=== PATIENT | male | born 1960 | race Caucasian/White ===

== ENCOUNTER 2023-07-16 09:47 | Inpatient (IN) | payer OTHER, SELFPAY ==
[2023-07-16] VITALS (45 sets, daily range): BP systolic 59–166; BP diastolic 27–92; PULSE 46–81; RESP 12–166; TEMP 31.1–37.8; O2SAT 98–100; BMI 20.5
--- NOTE | ~2023-07-16 | XR_ITS ---
EXAMINATION: XR CHEST CLINICAL INFORMATION: ET tube placement COMPARISON: None. TECHNIQUE: Frontal view of the chest was obtained. FINDINGS: Tip of endotracheal tube is 5 cm above the micheline. The lungs are hyperinflated but clear of acute pneumonic process. Heart size and pulmonary vascularity is normal. No gross bony abnormality seen. XR/XR chest 1V IMPRESSION: Tip of endotracheal tube 5 cm above the micheline. Emphysematous lungs are clear.
--- NOTE | ~2023-07-16 | XR_ITS ---
EXAMINATION: XR CHEST CLINICAL INFORMATION: Line placement. COMPARISON: Chest 07/16/2023 TECHNIQUE: Frontal view of the chest was obtained. FINDINGS: Part of left lower lobe and CP angle is not in the [id number]. The lungs are expanded and clear of acute process. Heart size and pulmonary vascularity is normal. There is a right jugular central catheter with its tip in mid SVC. Tip of endotracheal tube is 8.4 cm above the micheline. No gross bony abnormality seen. XR/XR chest 1V IMPRESSION: 1. No acute cardiopulmonary process seen. 2. Tip of endotracheal tube is 8.4 cm above the micheline. 3. Right jugular central catheter tip is in mid SVC.
--- NOTE | ~2023-07-16 | CT_ITS ---
EXAMINATION: CT brain and CT cervical spine without contrast. CLINICAL INDICATION: Unresponsive. TECHNIQUE: 5 mm thin axial and reformatted 2 mm thin sagittal and coronal images of brain were obtained. Axial 3 mm thin and reformatted 2 mm thin sagittal and coronal images of cervical spine were obtained. DLP 995. This CT examination was performed using dose optimization technique as appropriate, variously including the following: Automated exposure control Adjustment of MA and/or KV according to patient size(this includes techniques or standardized protocols for targeted exams where dose is matched to indication/reason for exam; extremities or head. Use of iterative reconstruction techniques. FINDINGS: BRAIN: There is no acute intra-axial, extra-axial bleed, masses or midline shift. There is no acute infarction in evolution. There is no edema. The pink to white matter differentiation is maintained normal. The lateral ventricles are symmetrical in size and configuration but mildly enlarged. Bone windows reveal no calvarial abnormality. There is no scalp soft tissue abnormality. Bilateral paranasal sinuses are clear. CERVICAL SPINE: On sagittal reconstructed images there is maintained cervical lordosis. The vertebral heights, alignment and disc heights are maintained normal. The craniovertebral junction and C1-C2 alignment is normal. There is moderate right C4-C5 and mild left C5-C6 facet joint arthropathy and hypertrophy. No visible acute fracture, dislocation or subluxation seen. The TM joint are symmetrical and unremarkable. There is an endotracheal tube extending into the distal trachea the prevertebral and paravertebral soft tissues are normal. There is emphysema with bibasilar apical pleural thickening and apical parenchymal scarring. CT/CT cervical spine wo IV con IMPRESSION: No acute intracranial process seen. There is no visible acute fracture, dislocation subluxation in cervical spine. There is facet joint arthropathy as described above.
--- NOTE | ~2023-07-16 | XR_ITS ---
EXAMINATION: XR CHEST CLINICAL INFORMATION: Enteric tube placement. COMPARISON: Chest radiograph earlier today 07/16/2023 at 3:19 PM. TECHNIQUE: Frontal view of the chest was obtained. FINDINGS: Endotracheal tube terminates at 4.8 cm above the micheline. Right IJ CVC catheter tip projects at the level of the superior cavoatrial junction. An enteric tube courses into the abdomen with the tip outside of the field of view, the side port projects over the gastroesophageal junction. Normal heart size. No focal consolidation. No pneumothorax. Trace blunting of the right lateral costophrenic angle is most likely related with mild pleural thickening in view of the patient's rotation versus left-sided trace amount of pleural fluid. No acute osseous findings. XR/XR chest 1V IMPRESSION: 1. Endotracheal tube terminates at 4.8 cm above the micheline. 2. Enteric tube side port projects over the gastroesophageal junction. Recommend mild advancement. 3. No acute cardiopulmonary findings.
--- NOTE | ~2023-07-16 | CT_ITS ---
EXAMINATION: CT CHEST, ABDOMEN AND PELVIS WITH CONTRAST CLINICAL INFORMATION: Altered mental status. COMPARISON: None available. TECHNIQUE: Multidetector volumetric imaging was performed of the chest, abdomen and pelvis following administration of 85 mL Omnipaque 350 intravenous contrast. Oral contrast was administered. Sagittal and coronal reformatted images were obtained on the technologist's workstation. This CT examination was performed using dose optimization techniques as appropriate, variously including the following: *Automated exposure control *Adjustment of mA and/or kV according to patient size (this includes techniques or standardized protocols for targeted exams where dose is matched to indication/reason for exam; i.e. extremities or head) *Use of iterative reconstruction technique DLP: 606 mGy-cm FINDINGS: Motion artifact technically degrades image quality. CHEST: CHEST WALL: No acute abnormality. MEDIASTINUM: Endotracheal tube in satisfactory position terminating 4 cm above the micheline. No bulky axillary, hilar or mediastinal lymphadenopathy. Great vessels are of normal caliber. Heart size is normal. No pericardial effusion. CORONARY ARTERY CALCIFICATION: No significant coronary artery calcification appreciated on this exam. PLEURA: There is no significant pleural effusion. LUNGS: Mild centrilobular emphysema. No focal consolidation. 3 mm nodule right lower lobe on image 28 of series 6. Central airways are patent. There is bibasilar dependent atelectasis. ABDOMEN AND PELVIS: ABDOMINAL AND PELVIC WALL: No acute abnormality. LIVER AND BILIARY TREE: No focal hepatic lesion. No biliary ductal dilatation. GALLBLADDER: Unremarkable. PANCREAS: Unremarkable. SPLEEN: Unremarkable. ADRENAL GLANDS: Unremarkable. KIDNEYS AND URETERS: Unremarkable. GASTROINTESTINAL TRACT: Severe fecal impaction in the colon. There is fecalization of small bowel most likely related to intestinal dysmotility. There is gastric distention. Appendix is within normal limits. VASCULAR: Normal caliber abdominal aorta. LYMPH NODES: No bulky lymphadenopathy. FREE FLUID: No free fluid. BLADDER: Unremarkable. PELVIC VISCERA: Unremarkable. OSSEOUS STRUCTURES: No destructive bone lesions. CT/CT abdomen pelvis w IV con IMPRESSION: Severe constipation. Dependent atelectasis. 3 mm right lower lobe pulmonary nodule.
[2023-07-16 09:57] LABS: Glucose, Whole Blood 169 mg/dL (60-115)
--- NOTE | 2023-07-16 10:07 | ECG_ITS ---
Test Reason : aspiration Blood Pressure : / mmHG Vent. Rate : 078 BPM Atrial Rate : 078 BPM P-R Int : 174 ms QRS Dur : 086 ms QT Int : 422 ms P-R-T Axes : 071 061 070 degrees QTc Int : 481 ms Normal sinus rhythm Possible Left atrial enlargement mildly Prolonged QT Abnormal ECG No previous ECGs available Referred By: Jose Randolph Electronically Signed By:KAYLEY SARKAR
[2023-07-16] MEDS: Etomidate 20 MG/10 ML VIAL IVPUSH (10:11)
--- NOTE | 2023-07-16 10:19 | ED_ITS ---
HPI - General Adult General Chief complaint: General Medical Stated complaint: ?SZ/?POSTICTAL,UNR @BREAKFAST FROM INPT PSYCH Time Seen by Provider: 07/16/23 10:19 Source: EMS Mode of arrival: EMS Limitations: other History of Present Illness HPI narrative: 63 year old male history of anxiety, depression, GERD, hyperlipidemia, vitamin B12 deficiency, hearing loss, acute metabolic encephalopathy, cigarette smoker, achalasia coming from an inpatient unit at [facility] presents with altered mental status, status post an episode of choking and unresponsiveness. Arrives to the department altered unable to protect his own airway, coughing, food contents hanging out of his mouth, according to EMS a suction and a large amount of food from patient's mouth. Patient unable to provide history Related Data Home Medications Medication Instructions Recorded Confirmed acetaminophen 325 mg tablet 650 mg PO Q4H PRN Pain 07/16/23 07/16/23 aspirin 81 mg tablet,delayed 81 mg PO DAILY 07/16/23 07/16/23 release atorvastatin 10 mg tablet 10 mg PO DAILY 07/16/23 07/16/23 cholecalciferol (vitamin D3) 50 50 mcg PO DAILY 07/16/23 07/16/23 mcg (2,000 unit) tablet clozapine 100 mg disintegrating 200 mg PO DAILY 07/16/23 07/16/23 tablet cyanocobalamin (vitamin B-12) 1,000 mcg PO DAILY 07/16/23 07/16/23 1,000 mcg tablet divalproex 500 mg tablet,delayed 1,000 mg PO BEDTIME 07/16/23 07/16/23 release (Depakote) docusate sodium 100 mg capsule 100 mg PO BID 07/16/23 07/16/23 famotidine 20 mg tablet 20 mg PO DAILY 07/16/23 07/16/23 fludrocortisone 0.1 mg tablet 0.1 mg PO DAILY 07/16/23 07/16/23 glycopyrrolate 1 mg tablet 1 mg PO BEDTIME 07/16/23 07/16/23 propranolol 60 mg capsule,24 60 mg PO DAILY 07/16/23 07/16/23 hr,extended release sennosides 8.6 mg tablet 17.2 mg PO BEDTIME 07/16/23 07/16/23 timolol 0.5 % eye drops 1 drp ophthalmic (eye) BID 07/16/23 07/16/23 Allergies Allergy/AdvReac Type Severity Reaction Status Date / Time No Known Allergies Allergy Verified 07/16/23 10:06 Review of Systems 2 Review of Systems: Yes Unobtainable due to mental status PMF Past Medical History Attestation statement: The following information was validated with the patient. Source: old records reviewed and nursing notes reviewed Social History Social History Unable to assess alcohol history related to: Unable to respond Smoked in Last 30 Days: Yes Advance Directives: No Advance Directives Information Provided: No Physical Exam ED Vital Signs: Vital Signs - 24 hr 07/16/23 10:07 07/16/23 10:16 07/16/23 10:26 Temperature 98 F Pulse Rate 78 77 79 Respiratory Rate 19 166 H Blood Pressure 151/75 H 151/75 H 140/75 H Pulse Oximetry 99 99 99 Oxygen Delivery Method Nasal Cannula Nasal Cannula Oxygen Flow Rate 2 Fraction of Inspired Oxygen 50 07/16/23 10:46 07/16/23 11:00 07/16/23 11:07 Temperature Pulse Rate 77 77 80 Respiratory Rate 16 16 Blood Pressure 145/77 H 148/92 H 153/78 H Pulse Oximetry 99 100 100 Oxygen Delivery Method Mechanical Ventilation Oxygen Flow Rate Fraction of Inspired Oxygen 60 07/16/23 11:17 07/16/23 11:40 07/16/23 11:43 Temperature Pulse Rate 78 69 Respiratory Rate 18 14 Blood Pressure 148/86 H 133/87 Pulse Oximetry 100 100 Oxygen Delivery Method Mechanical Ventilation Oxygen Flow Rate Fraction of Inspired Oxygen 50 50 BMI result Body Mass Index 20.5 Appearance: Moderate respiratory distress on arrival, unable to control his own secretions, not responding to verbal or painful stimuli. Cachectic appearing Head: Normocephalic, atraumatic, no step-offs or deformities Eyes: Pupils equal, round and reactive to light.? ENT: A large amount of food noted in patient's oropharynx and airway. Neck: Normal inspection.? Neck supple.? CVS: Normal heart rate and rhythm.? Pulses normal.? Respiratory: No respiratory distress.? Breath sounds very diminished bilaterally worse on the left..? Abdomen: Soft and nontender.? Skin: Skin warm and dry.? Normal skin color.? Normal skin turgor.? Extremities: No lower extremity edema.? No calf ttp. Global weakness Neuro: Moderate respiratory distress on arrival, unable to control his own secretions, not responding to verbal or painful stimuli. Course Reevaluation(s) Reevaluation #1: CBC with a normocytic anemia. Low platelet count of 154, unknown patient's baseline. Patient's chemistry with elevated BUN likely secondary to poor p.o. intake/dehydration, lactic acid 2.2, covering patient for suspected aspiration pneumonia. UA without infection. Pending CT chest, abdomen, pelvis, head, cervical spine. Time: 11:50 Reevaluation #2: Will reach out to the brake drum molder Dr. Gipson for admission. Time: 11:51 Reevaluation #3: [employer] accepts admission at this time. Time: 11:52 Medications Administered Generic Name Dose Route Start Last Admin Trade Name Freq PRN Reason Stop Dose Admin Propofol 1,000 mg in 100 mls @ 0 mls/hr 07/16/23 10:30 07/16/23 13:07 Diprivan IVCONT 40 mcg/kg/min .Q0M KYLE 15.12 mls/hr Titration Protocol Per Protocol Discontinued Medications Generic Name Dose Route Start Last Admin Trade Name Freq PRN Reason Stop Dose Admin Etomidate 20 mg 07/16/23 10:27 07/16/23 10:11 Etomidate 20 Mg/10 Ml Vial IVPUSH 07/16/23 10:28 20 mg ONCE ONE Administration Sodium Chloride 1,000 mls @ 999 mls/hr 07/16/23 10:06 07/16/23 12:44 Ns IV 07/16/23 11:06 Infused .Q1H1M STA Infusion Cefepime HCl 2 gm/ Sodium 50 mls @ 100 mls/hr 07/16/23 10:30 07/16/23 12:44 Chloride IV 07/16/23 10:59 Infused ONCE ONE Infusion Azithromycin 500 mg/ Sodium 250 mls @ 125 mls/hr 07/16/23 10:30 07/16/23 11:42 Chloride IV 07/16/23 12:29 125 mls/hr ONCE ONE Administration Sodium Chloride 1,000 mls @ 999 mls/hr 07/16/23 10:30 07/16/23 12:44 Ns IV 07/16/23 11:30 Infused .Q1H1M KYLE Infusion Fentanyl 1,000 mcg in 100 mls @ 0 mls/hr 07/16/23 11:45 07/16/23 13:15 Sublimaze/Ns IVCONT Infused .Q0M KYLE Titration Protocol Per Protocol Iohexol 100 ml 07/16/23 11:31 07/16/23 11:31 Iohexol 350 Mg/Ml 100 Ml Infus..Btl IV 07/16/23 11:32 85 ml ONCE ONE Administration Rocuronium [place] 40 mg 07/16/23 10:27 07/16/23 10:11 Rocuronium [place] 100 Mg/10 Ml Vial IV 07/16/23 10:28 40 mg ONCE ONE Administration Procedures Intubation Time out performed: Yes sedative: Etomidate Mg Given: 20 paralytic: Rocuronium Mg Given: 40 Laryngoscope: fiber optic video scope Assist Device Used: fiber optic device ET Tube Size: 8 ET Tube Uncuffed: No Tube Secured Depth (cm): 22 Tube Secured Location: lips Tube Placement Confirmation: visualized tube passing through cords, equal breath sounds bilaterally, no breath sounds over epigastrium and confirmation by capnometry Patient Tolerated Procedure: well Intubation Complications: none Medical Decision Making Medical Decision Making MDM Narrative: 63-year-old male presents unresponsive status post episode of choking at [facility]. Unable to answer questions. Appears to be in moderate distress upon arrival. Physical exam significant for Moderate respiratory distress on arrival, unable to control his own secretions, not responding to verbal or painful stimuli. Patient appears cachectic, not responding to painful or verbal stimuli. Unable to protect his own airway. Immediately on patient's arrival he was put on the containers sales representative, and his airway was secured, Narcan was also given patient did not respond to Narcan. Rapid sequence intubation was done using 20 mg of etomidate 40 of rocuronium, a 8.0 ET tube was placed under direct visualization with GlideScope 22 at the lip, there was a large amount of food content noted in patient's mouth, and airway, + colormetric change, + bs b/l s/p intubation. Suppervising physian Dr. Randolph present and ok with plan Imminent problem acute respiratory distress likely secondary to aspiration of food contents, other differentials include seizure. Will rule out infection, electrolyte abnormalities, abnormalities in head, neck, chest, abdomen and pelvis. Plan- labs, imaging, Differential Diagnosis Differential Diagnoses: The differential diagnosis associated with the presentation includes Imminent problem acute respiratory distress likely secondary to aspiration of food contents, other differentials include seizure. Will rule out infection, electrolyte abnormalities, abnormalities in head, neck, chest, abdomen and pelvis. Admission/Observation Consideration of admission/observation: Escalation of care including admission/observation considered ICU level of care will be needed Consult Healthcare Provider Management of the patient was discussed with: Luggage [employer] Lab Data MDM Lab Attestation statement: I reviewed the patient's lab results. 07/16/23 10:15 07/16/23 10:15 Labs: Lab Results 07/16/23 07/16/23 07/16/23 Range/Units 09:54 10:15 11:27 WBC 6.5 (4.8-10.8) X10*3/uL RBC 3.57 L (4.60-5.80) X10*6/uL Hgb 11.0 L (14.0-18.0) g/dl Hct 33.0 L (42.0-52.0) % MCV 92.4 (80.0-98.0) fL MCH 30.8 (27.0-33.0) pg MCHC 33.3 (31.0-36.0) g/dl RDW 13.0 (11.0-16.0) % Plt Count 154 L (160-400) X10*3/uL MPV 9.9 (9.4-12.4) fL Immature Gran % (Auto) 0.5 H (0.0-0.4) % Neut % (Auto) 75.2 H (45-73) % Lymph % (Auto) 16.5 L (20-40) % [place] % (Auto) 5.8 (2-11) % Eos % (Auto) 1.5 (0-4) % Baso % (Auto) 0.5 (0-2) % Lymph # (Auto) 1.1 L (1.2-4.9) X10*3/uL [place] # (Auto) 0.4 (0.1-1.2) X10*3/uL Eos # (Auto) 0.1 (0.0-0.4) X10*3/uL Baso # (Auto) 0.0 (0.0-0.2) X10*3/uL Abs Immat Gran (auto) 0.03 (0.00-0.03) X10*3/uL Absolute Neuts (auto) 4.9 (2.0-8.3) x10*3/uL Absolute Nucleated RBC 0.000 (0.0-0.012) X10*3/uL Nucleated RBC % (auto) 0.0 (0.0-0.2) /100WBC PT 13.0 (11.1-13.3) SEC INR 1.1 (0.9-1.1) APTT 30.8 (26.0-36.4) SEC Sodium 138 (135-145) mmol/L Potassium 4.0 (3.3-5.1) mmol/L Chloride 108 (96-108) mmol/L Carbon Dioxide 24 (22-29) mmol/L Anion Gap 10 L (12-20) BUN 20 H (9-16) mg/dL Creatinine 0.74 (0.5-1.4) mg/dL Estim Creat Clear Calc 89.8 Estimated GFR > 60 POC Glucose 169 H (60-115) mg/dL Random Glucose 170 H (60-115) mg/dL Lactic Acid 2.2 H* (0.5-2.0) mmol/L Calcium 8.5 (8.4-10.2) mg/dL Total Bilirubin 0.5 (0.0-1.0) mg/dL Direct Bilirubin 0.2 (0.0-0.5) mg/dL AST 23 (5-37) U/L ALT 12 (0-40) U/L Alkaline Phosphatase 57 (39-117) U/L Total Creatine Kinase 502 H (38-174) U/L Troponin I High Sens 3.3 (<3.5-35.0) ng/L B-Natriuretic Peptide 30 (<100) pg/mL Total Protein 6.0 L (6.5-8.0) g/dL Albumin 3.7 (3.5-5.0) g/dL Urine Color Yellow Urine Appearance Clear Urine pH 5.5 (5.0-9.0) Ur Specific [place] >= 1.030 H (1.005-1.025) Urine Protein Negative (Neg-Trace) mg/dL Urine Glucose (UA) Negative (Negative) mg/dL Urine Ketones Trace (Negative) mg/dL Urine Blood Negative (Negative) Urine Nitrite Negative (Negative) Ur Leukocyte Esterase Negative (Negative) Urine RBC 0-2 (0-2) /HPF Urine WBC 0-5 (0-5) /HPF Ur Squamous Epith Cells 0-2 (0-2) /HPF Urine Bacteria None Seen (None Seen) Hyaline Casts 0-2 (0-2) /LPF Ethyl Alcohol < 10 mg/dL Independent Interpretation I performed an independent interpretation of an: CT Scan (CT/CT chest w IV con IMPRESSION: Severe constipation. Dependent atelectasis. 3 mm right lower lobe pulmonary nodule.) Radiology Impression Discussion of test interpretation with radiology: I have reviewed the radiologist's reading. External Record Review External record reviewed: Other Social Determinants Patient?s care significantly limited by Social Determinants of Health including: Other Social Determinant of Health Critical Care Time Critical Care Time Critical Care Time: Yes Total Critical Care Time: 60 Attestation: I attest to this time spent taking care of the patient, obtaining history, physical, reviewing labs, imaging, speaking to my attending, speaking to specialist. Discharge Plan Discharge Clinical Impression: Aspiration pneumonia, Altered mental status Patient Disposition: Admitted As Inpatient Interventions: Admission Worksheet (ED) Last Done: 07/16/23 13:20 Discharge Date/Time: 07/16/23 13:27
[2023-07-16 10:21] LABS: MANUAL DIFF FLAG NO
[2023-07-16 10:26] LABS: Basophils Percent Auto 0.5 % (0-2); Eosinophils Absolute Auto 0.1 X10*3/uL (0.0-0.4); Eosinophils Percent Auto 1.5 % (0-4); Imm Gran Abs Auto 0.03 X10*3/uL (0.00-0.03); Imm Gran Pct Auto 0.5 % (0.0-0.4); Lymphocytes Absolute Auto 1.1 X10*3/uL (1.2-4.9); Lymphocytes Percent Auto 16.5 % (20-40); Mean Corpuscular HGB Conc 33.3 g/dl (31.0-36.0); Mean Corpuscular Hemoglobin 30.8 pg (27.0-33.0); Mean Corpuscular Volume 92.4 fL (80.0-98.0); Mean Platelet Volume 9.9 fL (9.4-12.4); Monocytes Absolute Auto 0.4 X10*3/uL (0.1-1.2); Monocytes Percent Auto 5.8 % (2-11); Neutrophils Absolute Auto 4.9 x10*3/uL (2.0-8.3); Neutrophils Percent Auto 75.2 % (45-73); Platelet Count 154 X10*3/uL (160-400); Red Blood Count 3.57 X10*6/uL (4.60-5.80); White Blood Count 6.5 X10*3/uL (4.8-10.8)
--- NOTE | 2023-07-16 10:28 | PC.NURSE ---
rocuronium and etomidate given, intubated 23 at the lip, 8.0, bits of food suctioned during intubation and during ogt placement, [address], 1 via ems, sr on monitor, pt brought to ct scan and c xray complete
[2023-07-16 10:36] LABS: INTERNATIONAL NORM RATIO 1.1 (0.9-1.1)
[2023-07-16 10:41] LABS: Lactic Acid 2.2 mmol/L (0.5-2.0)
[2023-07-16 10:42] LABS: Alanine Aminotransferase 12 U/L (0-40); Albumin Level 3.7 g/dL (3.5-5.0); Alkaline Phosphatase 57 U/L (39-117); Anion Gap 10 (12-20); Aspartate Amino Transferase 23 U/L (5-37); Bilirubin Direct 0.2 mg/dL (0.0-0.5); Bilirubin Total 0.5 mg/dL (0.0-1.0); Blood Urea Nitrogen 20 mg/dL (9-16); Calcium 8.5 mg/dL (8.4-10.2); Carbon Dioxide 24 mmol/L (22-29); Chloride 108 mmol/L (96-108); Creatinine Clr Calc Pharmacy 89.8; Estimated Glomerular Filt Rate > 60; Ethanol < 10 mg/dL; Glucose Random 170 mg/dL (60-115); Sodium 138 mmol/L (135-145)
[2023-07-16] MEDS: 0.9 % Sodium Chloride 1,000 ML 999 ML IV ×2 (10:42→11:34)
[2023-07-16] MEDS: propofoL 1,000 MG/100 ML VIAL 11.34 MG IVCONT (10:46)
[2023-07-16] MEDS: cefEPime HCl 2 GM in 0.9 % Sodium Chloride 50 ML IV (11:04)
[2023-07-16] MEDS: iohexoL 350 MG/ML 100 ML INFUS..BTL IV (11:31)
[2023-07-16 11:34] LABS: Appearance Urine Clear; Color Urine Yellow; Glucose Urine UA Negative (Negative); Leukocyte Esterase Urine Negative (Negative); Nitrite Urine Negative (Negative); PH 5.5 (5.0-9.0); Specific Gravity - Urine >= 1.030 (1.005-1.025); Urine Blood Negative (Negative); Urine Ketones Trace mg/dL (Negative); Urine Protein Negative (Neg-Trace)
--- NOTE | 2023-07-16 11:35 | PC.NURSE ---
Patient restless, agitated attempting to pull and grab at ETT but not biting on tube. Patient placed in bilateral wrist restraints, propofol at max dose. Provider made aware.
[2023-07-16 11:36] LABS: Bacteria Urine None Seen (None Seen); Hyaline Casts Urine 0-2 /LPF (0-2); RBC Urine 0-2 /HPF (0-2); Squamous Epithelial Cell Urine 0-2 /HPF (0-2); WBC Urine 0-5 /HPF (0-5)
[2023-07-16] MEDS: Azithromycin 500 MG in 0.9 % Sodium Chloride 250 ML 125 MG IV (11:42)
[2023-07-16 11:50] LABS: Partial Thromboplastin Time 30.8 SEC (26.0-36.4)
--- NOTE | 2023-07-16 11:51 | PHA.MEDREC ---
Pharmacy Consult ? Medication Reconciliation Pharmacy has completed the medication reconciliation. Patient sent with list from [facility], called to confirm when last clozaril dose was and they noted that even though he is listed as 400mg HS, he has only been there for 2 days because he was not adherent, due to this they were titrating him back up and his current regimen is 200mg daily.
[2023-07-16] MEDS: fentaNYL citrate/NS 1,000 MCG/100 ML PLAST..BAG 2.5 MCG IVCONT (11:52)
[2023-07-16 12:03] LABS: Troponin-I High Sensitivity 3.3 ng/L (<3.5-35.0)
[2023-07-16 12:12] LABS: B Type Natriuretic Peptide 30 pg/mL (<100)
[2023-07-16 12:19] LABS: Reflex Lactate? Lactic Acid Added
[2023-07-16 12:42] LABS: VBG Base Excess -3.3 mmol/L; VBG HCO3 20 mmol/L (22-26); VBG pCO2 32 mmHg; VBG pH 7.41 (7.32-7.43); VBG pO2 163 mmHg
[2023-07-16 12:42] LABS: Venous Blood Gas Refer to POC result
[2023-07-16 12:55] LABS: ~Lactic Acid-LAB USE ONLY 2.2 mmol/L (0.5-2.0)
[2023-07-16] MEDS: Ampicillin Sodium/Sulbactam Na 3 GM in 0.9 % Sodium Chloride 100 ML IV ×3 (13:37→23:41)
[2023-07-16] MEDS: Chlorhexidine Gluc Oral Rinse 15 ML MOUTHWASH BUCCAL (13:37)
[2023-07-16 14:36] LABS: Reflex Lactate? 2 Y
[2023-07-16] MEDS: Heparin Sodium,Porcine 5,000 UNIT/ML VIAL 5000 UNIT SUBCUT ×2 (14:42→20:59)
[2023-07-16] MEDS: Norepinephrine Bitartrate/D5W 8 MG/250 ML PLAST..BAG 5.91 MG IV (14:55)
[2023-07-16] MEDS: Phenylephrine HCL 1,000 MCG/10 ML SYRINGE 400 MCG IVPUSH (15:05)
--- NOTE | 2023-07-16 15:28 | P.PCNCC_ITS ---
Procedures Date of Service Date of Service: 07/16/23 Central Line Placement Right IJ: Central Line Comments: Patient with sudden acute drop in blood pressure refractory to initial high-dose Levophed support requiring push dose pressors. Right internal jugular triple- lumen central venous line emergently placed for pressor support under ultrasound guidance with no immediate complications. Chest x-ray for line position is pending.
--- NOTE | 2023-07-16 16:09 | PC.NURSE ---
At 1435 pt noted to have a BP 76/[address] Gipson notified - Levophed drip ordered and started per EMAR. MAP continued to maintain <65 w/ levo titrations, HR 40's, sinus - MD called to bedside - Phenyleprine 200mcg x2 given IVP by MD, pacer pads applied - RT called to bedside. 1510 emergent TLC placed w/o issue - placement confirmed by XRAY. MAP improved and maintaining >65 - levo gtt titrated per EMAR - HR high 50's, synchronous w/ vent setting.
--- NOTE | 2023-07-16 16:24 | PM.CCHP ---
History of Present Illness Date of Service: 07/16/23 Chief Complaint: Alteration of mental status, acute respiratory failure aspiration of food 63-year-old gentleman with underlying history of anxiety, depression, GERD, achalasia, also likely schizophrenia admitted on 07/16/2023 from [facility] after an episode of unresponsiveness associated with choking on foot during the 1st in emergency room patient unable to protect airway with foot particles in the Mohs, intubated for 40 aspiration and transferred to intensive care unit. Review of Systems Review of Systems: Yes unobtainable due to endotracheal tube, Unobtainable due to mental condition and Unobtainable due to mental status [facility] Social History Social History Household Members: Unknown / Unable to assess Housing: Unknown / Unable to assess Unable to assess alcohol history related to: Unknown Patient Tobacco Use Status: Tobacco use Unknown Smoked in Last 30 Days: Yes Use of substances other than those prescribed or required for medical reasons: Unknown Advance Directives: No Advance Directives Information Provided: No Meds Allergies Allergy/AdvReac Type Severity Reaction Status Date / Time No Known Allergies Allergy Verified 07/16/23 10:06 Active Medications: Current Medications Famotidine (Famotidine/Pf 20 Mg/2 Ml Vial) 20 mg IVPUSH DAILY KYLE Heparin Sodium (Porcine) (Heparin Sodium,Porcine 5,000 Unit/Ml Vial) 5,000 unit SUBCUT Q8H KYLE Last Admin: 07/16/23 14:42 Dose: 5,000 unit Propofol (Diprivan) 1,000 mg in 100 mls @ 0 mls/hr IVCONT .Q0M KYLE; Protocol Last Titration: 07/16/23 15:18 Dose: 40 mcg/kg/min, 15.12 mls/hr Ampicillin Sodium/Sulbactam (Sodium 3 gm/ Sodium Chloride) 100 mls @ 200 mls/hr IV Q6H KYLE Last Infusion: 07/16/23 14:10 Dose: Infused Valproic Acid 1,000 mg/ (Dextrose) 60 mls @ 60 mls/hr IV Q24H KYLE Norepinephrine Bitartrate (Levophed) 8 mg in 250 mls @ 0 mls/hr IV .Q0M KYLE; Protocol Last Titration: 07/16/23 16:07 Dose: 0.28 mcg/kg/min, 33.08 mls/hr Midazolam HCl (Midazolam Hcl/Pf 2 Mg/2 Ml Vial) 2 mg IVPUSH Q2H PRN PRN Reason: ventilator synchrony Home Medications Medication Instructions Recorded Confirmed Last Taken Type acetaminophen 325 mg tablet 650 mg PO Q4H PRN Pain 07/16/23 07/16/23 Unknown History aspirin 81 mg tablet,delayed 81 mg PO DAILY 07/16/23 07/16/23 Unknown History release atorvastatin 10 mg tablet 10 mg PO DAILY 07/16/23 07/16/23 Unknown History cholecalciferol (vitamin D3) 50 50 mcg PO DAILY 07/16/23 07/16/23 Unknown History mcg (2,000 unit) tablet clozapine 100 mg disintegrating 200 mg PO DAILY 07/16/23 07/16/23 07/16/23 History tablet cyanocobalamin (vitamin B-12) 1,000 mcg PO DAILY 07/16/23 07/16/23 Unknown History 1,000 mcg tablet divalproex 500 mg tablet,delayed 1,000 mg PO BEDTIME 07/16/23 07/16/23 Unknown History release (Depakote) docusate sodium 100 mg capsule 100 mg PO BID 07/16/23 07/16/23 Unknown History famotidine 20 mg tablet 20 mg PO DAILY 07/16/23 07/16/23 Unknown History fludrocortisone 0.1 mg tablet 0.1 mg PO DAILY 07/16/23 07/16/23 Unknown History glycopyrrolate 1 mg tablet 1 mg PO BEDTIME 07/16/23 07/16/23 Unknown History propranolol 60 mg capsule,24 60 mg PO DAILY 07/16/23 07/16/23 Unknown History hr,extended release sennosides 8.6 mg tablet 17.2 mg PO BEDTIME 07/16/23 07/16/23 Unknown History timolol 0.5 % eye drops 1 drp ophthalmic (eye) BID 07/16/23 07/16/23 Unknown History Physical Exam Vital Signs: Vital Signs: Last Vital Signs Temp 95.7 F L 07/16/23 16:00 Pulse 58 07/16/23 16:07 Resp 18 07/16/23 16:00 BP 138/69 07/16/23 16:07 Pulse Ox 100 07/16/23 16:00 O2 Del Method Mechanical Ventil ation 07/16/23 16:00 O2 Flow Rate 2 07/16/23 10:07 FiO2 30 07/16/23 16:07 Oxygen Flow Rate 2 07/16/23 10:16 BMI result Body Mass Index 20.5 Const: General: no acute distress and other (Sedated on the vent) Eyes: Sclerae: sclerae normal EOM: EOMs intact bilaterally Neck: Neck: Yes no lymphadenopathy, Yes trachea midline and Yes supple Resp: Auscultation: clear to auscultation bilaterally Cardio: Rate: regular rate Rhythm: regular rhythm Heart sounds: no gallops, no murmurs and no rubs GI: Palpation (GI): Soft to palpation and Other GI palpation findings present ( Nontender) Auscultation: normal bowel sounds Extrem: General: Yes no pedal edema, No clubbing and No cyanosis Results Labs 07/16/23 10:15 07/16/23 10:15 Labs: Laboratory Results - last 24 hr 07/16/23 07/16/23 07/16/23 09:54 10:15 11:27 MCV 92.4 MCH 30.8 MCHC 33.3 RDW 13.0 Plt Count 154 L MPV 9.9 Immature Gran % (Auto) 0.5 H Neut % (Auto) 75.2 H Lymph % (Auto) 16.5 L [place] % (Auto) 5.8 Eos % (Auto) 1.5 Baso % (Auto) 0.5 Lymph # (Auto) 1.1 L [place] # (Auto) 0.4 Eos # (Auto) 0.1 Baso # (Auto) 0.0 Abs Immat Gran (auto) 0.03 Absolute Neuts (auto) 4.9 Absolute Nucleated RBC 0.000 Nucleated RBC % (auto) 0.0 PT 13.0 INR 1.1 APTT 30.8 VBG pH VBG pCO2 VBG pO2 VBG HCO3 VBG O2 Saturation VBG Base Excess Anion Gap 10 L Estim Creat Clear Calc 89.8 Estimated GFR > 60 POC Glucose 169 H Random Glucose 170 H Lactic Acid 2.2 H* Lactic Acid F/U @ 2Hr Lactic Acid F/U @ 4Hr Calcium 8.5 Total Bilirubin 0.5 Direct Bilirubin 0.2 AST 23 ALT 12 Alkaline Phosphatase 57 Total Creatine Kinase 502 H B-Natriuretic Peptide 30 Total Protein 6.0 L Albumin 3.7 Urine Color Yellow Urine Appearance Clear Urine pH 5.5 Ur Specific [place] >= 1.030 H Urine Protein Negative Urine Glucose (UA) Negative Urine Ketones Trace Urine Blood Negative Urine Nitrite Negative Ur Leukocyte Esterase Negative Urine RBC 0-2 Urine WBC 0-5 Ur Squamous Epith Cells 0-2 Urine Bacteria None Seen Hyaline Casts 0-2 Ethyl Alcohol < 10 07/16/23 07/16/23 07/16/23 12:32 12:37 14:46 MCV MCH MCHC RDW Plt Count MPV Immature Gran % (Auto) Neut % (Auto) Lymph % (Auto) [place] % (Auto) Eos % (Auto) Baso % (Auto) Lymph # (Auto) [place] # (Auto) Eos # (Auto) Baso # (Auto) Abs Immat Gran (auto) Absolute Neuts (auto) Absolute Nucleated RBC Nucleated RBC % (auto) PT INR APTT VBG pH 7.41 VBG pCO2 32 VBG pO2 163 VBG HCO3 20 L VBG O2 Saturation 100.0 VBG Base Excess -3.3 Anion Gap Estim Creat Clear Calc Estimated GFR POC Glucose Random Glucose Lactic Acid Lactic Acid F/U @ 2Hr 2.2 H* Lactic Acid F/U @ 4Hr 2.0 Calcium Total Bilirubin Direct Bilirubin AST ALT Alkaline Phosphatase Total Creatine Kinase B-Natriuretic Peptide Total Protein Albumin Urine Color Urine Appearance Urine pH Ur Specific [place] Urine Protein Urine Glucose (UA) Urine Ketones Urine Blood Urine Nitrite Ur Leukocyte Esterase Urine RBC Urine WBC Ur Squamous Epith Cells Urine Bacteria Hyaline Casts Ethyl Alcohol Imaging Radiologist's Impressions: Impressions Chest X-Ray 07/16/23 10:22 IMPRESSION: Tip of endotracheal tube 5 cm above the micheline. Emphysematous lungs are clear. Cervical Spine CT 07/16/23 11:28 IMPRESSION: No acute intracranial process seen. There is no visible acute fracture, dislocation subluxation in cervical spine. There is facet joint arthropathy as described above. Head CT 07/16/23 11:28 IMPRESSION: No acute intracranial process seen. There is no visible acute fracture, dislocation subluxation in cervical spine. There is facet joint arthropathy as described above. Abdomen/Pelvis CT 07/16/23 11:29 IMPRESSION: Severe constipation. Dependent atelectasis. 3 mm right lower lobe pulmonary nodule. Chest CT 07/16/23 11:30 IMPRESSION: Severe constipation. Dependent atelectasis. 3 mm right lower lobe pulmonary nodule. Assessment and Plan (1) Acute respiratory failure: Status: Acute (2) Aspiration of food: Status: Acute (3) Altered mental status: Status: Acute Plan Assessment: 63-year-old gentleman with underlying achalasia lactose schizophrenia admitted with acute respiratory failure secondary to aspiration of food requiring intubation and ventilatory support Plan: Neuro: Acute encephalopathy on the background of likely schizophrenia and seizure. Continue valproic acid. Cardiac: Shock secondary to pulmonary aspiration, continue to titrate off pressors as tolerated. Pulmonary: Acute respiratory failure secondary to aspiration intubated for ever protection. Continue to titrate of ventilatory support as tolerated. CT chest with no evidence of retained foreign body. Renal: No acute issues. Endo: No acute issues. GI: No acute issues. Underlying achalasia. ID: Empirically covered for aspiration pneumonitis versus pneumonia. Heme/Onc: No acute issues. Psych: No acute issues. Miscellaneous: No acute issues. Prophylaxis: Heparin, famotidine Diet: Nothing by mouth Critical care time spent: 60 minutes excluding separately billable procedures
[2023-07-16] MEDS: propofoL 1,000 MG/100 ML VIAL 15.12 MG IVCONT (17:47)
[2023-07-16 17:52] LABS: Glucose, Whole Blood 138 mg/dL (60-115)
[2023-07-16] MEDS: Lactulose 20 GM/30 ML SOLUTION 30 GM PO (21:00)
[2023-07-16] MEDS: Valproic Acid (as Sodium Salt) 1,000 MG in Dextrose 5 % 50 ML 60 MG IV (21:00)
--- NOTE | 2023-07-16 21:46 | PM.EVENT ---
Documented by User: Kyleigh Granger NP 07/16/23 21:50 Event Note Date of Service: 07/16/23 Event Note: One set of blood cultures reported positive at 11 hours for Gram-positive cocci in chains. Unasyn was started for likely aspiration pneumonitis versus pneumonia. I've ordered a repeat set of BCs and lactate. Continue Unasyn.? Time Spent With Patient Time: Total time managing care of this patient today ____ minutes. Documented by User: Clayton Gipson MD 07/17/23 08:17 Event Note Date of Service: 07/17/23
[2023-07-16 22:32] LABS: Lactic Acid 1.9 mmol/L (0.5-2.0)
[2023-07-17] VITALS (36 sets, daily range): BP systolic 108–157; BP diastolic 52–79; PULSE 62–97; RESP 15–27; TEMP 35–37.7; O2SAT 79–100; BMI 22.3
[2023-07-17] MEDS: propofoL 1,000 MG/100 ML VIAL 13.23 MG IVCONT (00:56)
[2023-07-17] MEDS: Norepinephrine Bitartrate/D5W 8 MG/250 ML PLAST..BAG 14.18 MG IV (03:11)
[2023-07-17] MEDS: Heparin Sodium,Porcine 5,000 UNIT/ML VIAL 5000 UNIT SUBCUT ×3 (03:13→19:37)
[2023-07-17 05:38] LABS: VBG Base Excess 4.9 mmol/L; VBG HCO3 28 mmol/L (22-26); VBG pCO2 36 mmHg; VBG pH 7.49 (7.32-7.43); VBG pO2 53 mmHg
[2023-07-17 05:40] LABS: Venous Blood Gas Refer to POC result
[2023-07-17 05:54] LABS: MANUAL DIFF FLAG NO
[2023-07-17 06:06] LABS: Basophils Percent Auto 0.4 % (0-2); Eosinophils Percent Auto 0.6 % (0-4); Hematocrit 28.2 % (42.0-52.0); Hemoglobin 9.5 g/dl (14.0-18.0); Imm Gran Abs Auto 0.02 X10*3/uL (0.00-0.03); Imm Gran Pct Auto 0.3 % (0.0-0.4); Lymphocytes Absolute Auto 1.5 X10*3/uL (1.2-4.9); Lymphocytes Percent Auto 22.1 % (20-40); Mean Corpuscular HGB Conc 33.7 g/dl (31.0-36.0); Mean Corpuscular Hemoglobin 31.1 pg (27.0-33.0); Mean Corpuscular Volume 92.5 fL (80.0-98.0); Mean Platelet Volume 10.4 fL (9.4-12.4); Monocytes Absolute Auto 0.5 X10*3/uL (0.1-1.2); Monocytes Percent Auto 7.1 % (2-11); Neutrophils Absolute Auto 4.8 x10*3/uL (2.0-8.3); Neutrophils Percent Auto 69.5 % (45-73); Platelet Count 179 X10*3/uL (160-400); Red Blood Count 3.05 X10*6/uL (4.60-5.80); Red Cell Distribution Width 13.3 % (11.0-16.0); White Blood Count 6.9 X10*3/uL (4.8-10.8)
[2023-07-17 06:20] LABS: Albumin Level 3.1 g/dL (3.5-5.0); Anion Gap 11 (12-20); Blood Urea Nitrogen 10 mg/dL (9-16); Calcium 8.3 mg/dL (8.4-10.2); Carbon Dioxide 25 mmol/L (22-29); Chloride 115 mmol/L (96-108); Estimated Glomerular Filt Rate > 60; Glucose Random 111 mg/dL (60-115); Magnesium 2.2 mg/dL (1.6-2.6); Phosphorus 3.2 mg/dL (2.7-4.5); Potassium 3.3 mmol/L (3.3-5.1); Sodium 148 mmol/L (135-145)
[2023-07-17] MEDS: Ampicillin Sodium/Sulbactam Na 3 GM in 0.9 % Sodium Chloride 100 ML IV ×4 (06:34→23:19)
[2023-07-17] MEDS: propofoL 1,000 MG/100 ML VIAL 15.12 MG IVCONT (06:37)
[2023-07-17] MEDS: Famotidine/PF 20 MG/2 ML VIAL IVPUSH (07:53)
[2023-07-17] MEDS: Lactulose 20 GM/30 ML SOLUTION 30 GM PO (07:53)
[2023-07-17] MEDS: Potassium Chloride Packet 20 MEQ PACKET 40 MEQ PO (07:53)
[2023-07-17] MEDS: Albumin Human 25 % 100 ML IV ×3 (08:31→19:36)
--- NOTE | 2023-07-17 10:18 | PM.CCPN ---
Subjective Subjective Date of Service: 07/17/23 Interval History: 63-year-old gentleman with underlying history of anxiety, depression, GERD, achalasia, also likely schizophrenia admitted on 07/16/2023 from [facility] after an episode of unresponsiveness associated with choking on food. During the evaluation in emergency room patient unable to protect airway with food particles in the mouth intubated airway protection and transferred to intensive care unit. No events overnight. Extubated uneventfully this a.m.. Critical Care Time (minutes): 45 Physical Exam Vital Signs: Vital Signs: Last Vital Signs Temp 99.0 F 07/17/23 09:00 Pulse 74 07/17/23 10:00 Resp 16 07/17/23 10:00 BP 130/62 07/17/23 10:00 Pulse Ox 99 07/17/23 10:00 O2 Del Method Room Air 07/17/23 10:00 O2 Flow Rate 2 07/16/23 10:07 FiO2 25 07/17/23 09:00 Oxygen Flow Rate 2 07/16/23 10:16 BMI result Body Mass Index 22.3 Const: General: no acute distress, alert and awake Eyes: Sclerae: sclerae normal EOM: EOMs intact bilaterally Neck: Neck: Yes no lymphadenopathy, Yes trachea midline and Yes supple Resp: Effort & Inspection: normal respiratory effort and no respiratory distress Auscultation: clear to auscultation bilaterally Cardio: Rate: regular rate Rhythm: regular rhythm Heart sounds: no gallops, no murmurs and no rubs GI: Palpation (GI): Soft to palpation and Other GI palpation findings present ( Nontender) Auscultation: normal bowel sounds Extrem: General: Yes no pedal edema, No clubbing and No cyanosis Objective Data Labs 07/17/23 05:23 07/17/23 05:23 Labs: Laboratory Results - last 24 hr 07/16/23 07/16/23 07/16/23 09:54 10:15 11:27 WBC 6.5 RBC 3.57 L Hgb 11.0 L Hct 33.0 L MCV 92.4 MCH 30.8 MCHC 33.3 RDW 13.0 Plt Count 154 L MPV 9.9 Immature Gran % (Auto) 0.5 H Neut % (Auto) 75.2 H Lymph % (Auto) 16.5 L [place] % (Auto) 5.8 Eos % (Auto) 1.5 Baso % (Auto) 0.5 Lymph # (Auto) 1.1 L [place] # (Auto) 0.4 Eos # (Auto) 0.1 Baso # (Auto) 0.0 Abs Immat Gran (auto) 0.03 Absolute Neuts (auto) 4.9 Absolute Nucleated RBC 0.000 Nucleated RBC % (auto) 0.0 PT 13.0 INR 1.1 APTT 30.8 VBG pH VBG pCO2 VBG pO2 VBG HCO3 VBG O2 Saturation VBG Base Excess Sodium 138 Potassium 4.0 Chloride 108 Carbon Dioxide 24 Anion Gap 10 L BUN 20 H Creatinine 0.74 Estim Creat Clear Calc 89.8 Estimated GFR > 60 POC Glucose 169 H Random Glucose 170 H Lactic Acid 2.2 H* Lactic Acid F/U @ 2Hr Lactic Acid F/U @ 4Hr Calcium 8.5 Phosphorus Magnesium Total Bilirubin 0.5 Direct Bilirubin 0.2 AST 23 ALT 12 Alkaline Phosphatase 57 Total Creatine Kinase 502 H Troponin I High Sens 3.3 B-Natriuretic Peptide 30 Total Protein 6.0 L Albumin 3.7 Urine Color Yellow Urine Appearance Clear Urine pH 5.5 Ur Specific [place] >= 1.030 H Urine Protein Negative Urine Glucose (UA) Negative Urine Ketones Trace Urine Blood Negative Urine Nitrite Negative Ur Leukocyte Esterase Negative Urine RBC 0-2 Urine WBC 0-5 Ur Squamous Epith Cells 0-2 Urine Bacteria None Seen Hyaline Casts 0-2 Ethyl Alcohol < 10 07/16/23 07/16/23 07/16/23 12:32 12:37 14:46 WBC RBC Hgb Hct MCV MCH MCHC RDW Plt Count MPV Immature Gran % (Auto) Neut % (Auto) Lymph % (Auto) [place] % (Auto) Eos % (Auto) Baso % (Auto) Lymph # (Auto) [place] # (Auto) Eos # (Auto) Baso # (Auto) Abs Immat Gran (auto) Absolute Neuts (auto) Absolute Nucleated RBC Nucleated RBC % (auto) PT INR APTT VBG pH 7.41 VBG pCO2 32 VBG pO2 163 VBG HCO3 20 L VBG O2 Saturation 100.0 VBG Base Excess -3.3 Sodium Potassium Chloride Carbon Dioxide Anion Gap BUN Creatinine Estim Creat Clear Calc Estimated GFR POC Glucose Random Glucose Lactic Acid Lactic Acid F/U @ 2Hr 2.2 H* Lactic Acid F/U @ 4Hr 2.0 Calcium Phosphorus Magnesium Total Bilirubin Direct Bilirubin AST ALT Alkaline Phosphatase Total Creatine Kinase Troponin I High Sens B-Natriuretic Peptide Total Protein Albumin Urine Color Urine Appearance Urine pH Ur Specific [place] Urine Protein Urine Glucose (UA) Urine Ketones Urine Blood Urine Nitrite Ur Leukocyte Esterase Urine RBC Urine WBC Ur Squamous Epith Cells Urine Bacteria Hyaline Casts Ethyl Alcohol 07/16/23 07/16/23 07/17/23 17:46 22:13 05:23 WBC 6.9 RBC 3.05 L Hgb 9.5 L Hct 28.2 L MCV 92.5 MCH 31.1 MCHC 33.7 RDW 13.3 Plt Count 179 MPV 10.4 Immature Gran % (Auto) 0.3 Neut % (Auto) 69.5 Lymph % (Auto) 22.1 [place] % (Auto) 7.1 Eos % (Auto) 0.6 Baso % (Auto) 0.4 Lymph # (Auto) 1.5 [place] # (Auto) 0.5 Eos # (Auto) 0.0 Baso # (Auto) 0.0 Abs Immat Gran (auto) 0.02 Absolute Neuts (auto) 4.8 Absolute Nucleated RBC 0.000 Nucleated RBC % (auto) 0.0 PT INR APTT VBG pH VBG pCO2 VBG pO2 VBG HCO3 VBG O2 Saturation VBG Base Excess Sodium 148 H Potassium 3.3 Chloride 115 H Carbon Dioxide 25 Anion Gap 11 L BUN 10 Creatinine 0.61 Estim Creat Clear Calc 109.0 Estimated GFR > 60 POC Glucose 138 H Random Glucose 111 Lactic Acid 1.9 Lactic Acid F/U @ 2Hr Lactic Acid F/U @ 4Hr Calcium 8.3 L Phosphorus 3.2 Magnesium 2.2 Total Bilirubin Direct Bilirubin AST ALT Alkaline Phosphatase Total Creatine Kinase Troponin I High Sens B-Natriuretic Peptide Total Protein Albumin 3.1 L Urine Color Urine Appearance Urine pH Ur Specific [place] Urine Protein Urine Glucose (UA) Urine Ketones Urine Blood Urine Nitrite Ur Leukocyte Esterase Urine RBC Urine WBC Ur Squamous Epith Cells Urine Bacteria Hyaline Casts Ethyl Alcohol 07/17/23 05:31 WBC RBC Hgb Hct MCV MCH MCHC RDW Plt Count MPV Immature Gran % (Auto) Neut % (Auto) Lymph % (Auto) [place] % (Auto) Eos % (Auto) Baso % (Auto) Lymph # (Auto) [place] # (Auto) Eos # (Auto) Baso # (Auto) Abs Immat Gran (auto) Absolute Neuts (auto) Absolute Nucleated RBC Nucleated RBC % (auto) PT INR APTT VBG pH 7.49 H VBG pCO2 36 VBG pO2 53 VBG HCO3 28 H VBG O2 Saturation 84.0 VBG Base Excess 4.9 Sodium Potassium Chloride Carbon Dioxide Anion Gap BUN Creatinine Estim Creat Clear Calc Estimated GFR POC Glucose Random Glucose Lactic Acid Lactic Acid F/U @ 2Hr Lactic Acid F/U @ 4Hr Calcium Phosphorus Magnesium Total Bilirubin Direct Bilirubin AST ALT Alkaline Phosphatase Total Creatine Kinase Troponin I High Sens B-Natriuretic Peptide Total Protein Albumin Urine Color Urine Appearance Urine pH Ur Specific [place] Urine Protein Urine Glucose (UA) Urine Ketones Urine Blood Urine Nitrite Ur Leukocyte Esterase Urine RBC Urine WBC Ur Squamous Epith Cells Urine Bacteria Hyaline Casts Ethyl Alcohol Microbiology Microbiology Results: Microbiology 07/16/23 10:15 Blood - Venous Blood Culture - Preliminary Prelim: GPC Gram Stain only Progress Note: A&P Assessment and plan (1) Aspiration of food: Status: Acute (2) Achalasia: Status: Acute (3) Schizophrenia: Status: Acute Plan Assessment: 63-year-old gentleman with underlying achalasia lactose schizophrenia admitted with acute respiratory failure secondary to aspiration of food requiring intubation and ventilatory support Plan: Neuro: Acute encephalopathy on the background of likely schizophrenia and seizure, resolved. Continue valproic acid. Cardiac: Shock secondary to pulmonary aspiration, resolved. Pulmonary: Acute respiratory failure secondary to aspiration intubated for airway protection. Extubated uneventfully this a.m.. CT chest with no evidence of retained foreign body. Renal: No acute issues. Endo: No acute issues. GI: No acute issues. Underlying achalasia. ID: Empirically covered for aspiration pneumonitis versus pneumonia. Heme/Onc: No acute issues. Psych: No acute issues. Miscellaneous: No acute issues. Prophylaxis: Heparin Diet: Pending swallow evaluation Critical care time spent: 45 minutes Quality Stroke Does the patient have a stroke diagnosis?: No VTE Prior VTE?: No VTE Risk Level:: Medical - moderate - high VTE Device Contraindication: Treatment Not Indicated VTE Drug Contraindication: N/A - Med Ordered
--- NOTE | 2023-07-17 12:07 | MHC.SL.SWA ---
Speech Pathologist Impression: Risk of Aspiration Due to: Hx of Recent Extubation Dysphasia Diet Status: Liquid Consistency and Strategies for Safe Swallow: Liquid Intake Recommendation: Thin Liquid Intake Strategies: Small Sips Solid Food Consistency: Dietary Recommendations: Chopped/Advanced (NDD3) Additional Modifications to Solid Foods: Oral Medication Intake: Whole with Liquid Please contact the pharmacy regarding appropriate crushable or liquid drug formulations that are available whenever modified delivery is recommended. Compensatory Strategies and Precautions to be Taken for Safe Swallow: Sitting Upright (90 deg) Liquids from Cup Liquids from Straw Small Bites and Sips Supervision While Eating and Drinking for Safe Swallow: Intermittent Supervision Foods to Avoid: Tough difficult to chew solids, too large pieces of food. Swallowing Recommended Treatments: Compens. Strategy Educat. Recommendation for Speech: Inpatient Speech Therapy Comment: Patient presents with swallow mostly WFL, however patient has poor dentition, recently suffered significant aspiration/choking event. Recommend START diet of Chopped/Advanced (NDD3) to assure softer, easy to chew foods, pre cut into small pieces. Recommend Thin liquids by straw or cup sip, and pills whole with liquid. Patient initially may need some supervision with food tray, but is able to eat and drink independently. , RN notified of recommendation in person in ICU. SEAM TAPER MACHINE will f/u X1 for toleration of diet, possible advancement. Frequency/Duration: Date Range for Service Req: Timeline to reassess: Motorcoach Operator Clinican/Clinical Fellow: No Supervisory Statement: I have reviewed and agree with the student/clinical fellow's documentation: N/A Speech Language Pathologist: Tiffani Bosch M.A., CCC-SEAM TAPER MACHINE
--- NOTE | 2023-07-17 12:11 | MHC.CM.PN ---
Pt intubated in ICU and unable to participate in CM assessment: Call placed to pt's emergency contact, Vicki at [phone]: She is the alf director ([place]). She states pt is his own decision maker, has no guardian or HCP in place. At baseline, he is independent w/all ADL's, polite, social and has no DME. Pt stopped taking Clozaril last month and began to decompensate: hoarding food, paranoia, delusions, refusing to come out of room: at that time, his psychiatrist sectioned him to [facility] on 07/14 and he was placed at [facility] in [place]. Call placed to [facility]: pt has been discharged and no longer has a bed. Vicki will accept pt back to alf if he is cleared by psych and back on medications. She will need a med order form faxed to her prior to return - she can fax one to us closer to pt's d/c. Pt may be able to extubate today - he will need a psych eval once medically cleared: ? return to [facility] (highly likely he needs psych stabilization) versus return to [facility]. CM to follow
--- NOTE | 2023-07-17 18:24 | PC.NURSE ---
Assumed care at 0645. Pt initially on vent AC settings of 18/450/5/25%; was following commands on IV Propofol MD blanquita made aware. Pt started on sedation vacation and was tolerating per plan. Sedation stopped at 0900, pt awake, following all commands. Pt was extubated per order at 0905 with no complications; on RA and satting appropriately. IV Levophed gtt titrated off. Pt passed his swallow eval by ST at bedside, propped meal trays and pt had no distress during meals, aspiration precautions maintained. Pt's king removed, voiding appropriately in the [place] catheter. Pt had a very large formed BM at the end of the shift. Pt was bathed and is able to reposition self. Refused to get OOB to chair today. Pt otherwise is AAOx3, appropriate. Alissa ortiz MD spoke to their THERAPEUTIC SALES SPECIALIST per their request. Pt is currently in no acute distress. Call salazar within reach, bed alarmed. Will continue with plan of care.
[2023-07-17] MEDS: Valproic Acid (as Sodium Salt) 1,000 MG in Dextrose 5 % 50 ML 60 MG IV (21:02)
[2023-07-17] MEDS: Acetaminophen 325 MG TABLET 650 MG PO (23:29)
[2023-07-18] VITALS (20 sets, daily range): BP systolic 104–141; BP diastolic 47–103; PULSE 60–136; RESP 15–20; TEMP 36.1–37.2; O2SAT 91–100; BMI 22.1
[2023-07-18] MEDS: Albumin Human 25 % 100 ML IV (01:52)
[2023-07-18] MEDS: Ampicillin Sodium/Sulbactam Na 3 GM in 0.9 % Sodium Chloride 100 ML IV ×3 (05:17→17:56)
[2023-07-18] MEDS: Heparin Sodium,Porcine 5,000 UNIT/ML VIAL 5000 UNIT SUBCUT ×3 (05:17→20:36)
[2023-07-18 05:45] LABS: MANUAL DIFF FLAG NO
[2023-07-18 05:53] LABS: Basophils Percent Auto 0.8 % (0-2); Eosinophils Absolute Auto 0.1 X10*3/uL (0.0-0.4); Eosinophils Percent Auto 2.5 % (0-4); Imm Gran Abs Auto 0.02 X10*3/uL (0.00-0.03); Imm Gran Pct Auto 0.4 % (0.0-0.4); Lymphocytes Absolute Auto 1.9 X10*3/uL (1.2-4.9); Lymphocytes Percent Auto 39.3 % (20-40); Mean Corpuscular HGB Conc 32.1 g/dl (31.0-36.0); Mean Corpuscular Hemoglobin 29.9 pg (27.0-33.0); Mean Platelet Volume 9.6 fL (9.4-12.4); Monocytes Absolute Auto 0.4 X10*3/uL (0.1-1.2); Monocytes Percent Auto 7.6 % (2-11); Neutrophils Absolute Auto 2.4 x10*3/uL (2.0-8.3); Neutrophils Percent Auto 49.4 % (45-73); Platelet Count 145 X10*3/uL (160-400); Red Blood Count 3.01 X10*6/uL (4.60-5.80); Red Cell Distribution Width 13.3 % (11.0-16.0); White Blood Count 4.9 X10*3/uL (4.8-10.8)
[2023-07-18 06:08] LABS: Albumin Level 3.8 g/dL (3.5-5.0); Anion Gap 14 (12-20); Blood Urea Nitrogen 10 mg/dL (9-16); Calcium 8.9 mg/dL (8.4-10.2); Carbon Dioxide 27 mmol/L (22-29); Chloride 110 mmol/L (96-108); Creatinine Clr Calc Pharmacy 112.1; Estimated Glomerular Filt Rate > 60; Glucose Random 92 mg/dL (60-115); Magnesium 2.1 mg/dL (1.6-2.6); Phosphorus 3.5 mg/dL (2.7-4.5); Potassium 3.8 mmol/L (3.3-5.1); Sodium 147 mmol/L (135-145)
--- NOTE | 2023-07-18 11:11 | PM.CCPN ---
Subjective Subjective Date of Service: 07/18/23 Interval History: 63-year-old gentleman with underlying history of anxiety, depression, GERD, achalasia, also likely schizophrenia admitted on 07/16/2023 from [facility] after an episode of unresponsiveness associated with choking on food. During the evaluation in emergency room patient unable to protect airway with food particles in the mouth intubated airway protection and transferred to intensive care unit. Extubated uneventfully on 07/17/2023. No events overnight. Critical Care Time (minutes): 0 Physical Exam Vital Signs: Vital Signs: Last Vital Signs Temp 98.5 F 07/18/23 08:00 Pulse 84 07/18/23 10:00 Resp 17 07/18/23 10:00 BP 120/54 L 07/18/23 10:00 Pulse Ox 91 L 07/18/23 10:00 O2 Del Method Room Air 07/18/23 10:00 O2 Flow Rate 2 07/16/23 10:07 FiO2 25 07/17/23 09:00 Oxygen Flow Rate 2 07/16/23 10:16 BMI result Body Mass Index 22.1 Const: General: no acute distress, alert and awake Eyes: Sclerae: sclerae normal EOM: EOMs intact bilaterally Neck: Neck: Yes no lymphadenopathy, Yes trachea midline and Yes supple Resp: Effort & Inspection: normal respiratory effort and no respiratory distress Auscultation: clear to auscultation bilaterally Cardio: Rate: regular rate Rhythm: regular rhythm Heart sounds: no gallops, no murmurs and no rubs GI: Palpation (GI): Soft to palpation and Other GI palpation findings present ( Nontender) Auscultation: normal bowel sounds Extrem: General: Yes no pedal edema, No clubbing and No cyanosis Objective Data Labs 07/18/23 05:38 07/18/23 05:38 Labs: Laboratory Results - last 24 hr 07/18/23 05:38 WBC 4.9 RBC 3.01 L Hgb 9.0 L Hct 28.0 L MCV 93.0 MCH 29.9 MCHC 32.1 RDW 13.3 Plt Count 145 L MPV 9.6 Immature Gran % (Auto) 0.4 Neut % (Auto) 49.4 Lymph % (Auto) 39.3 [place] % (Auto) 7.6 Eos % (Auto) 2.5 Baso % (Auto) 0.8 Lymph # (Auto) 1.9 [place] # (Auto) 0.4 Eos # (Auto) 0.1 Baso # (Auto) 0.0 Abs Immat Gran (auto) 0.02 Absolute Neuts (auto) 2.4 Absolute Nucleated RBC 0.000 Nucleated RBC % (auto) 0.0 Sodium 147 H Potassium 3.8 Chloride 110 H Carbon Dioxide 27 Anion Gap 14 BUN 10 Creatinine 0.64 Estim Creat Clear Calc 112.1 Estimated GFR > 60 Random Glucose 92 Calcium 8.9 D Phosphorus 3.5 Magnesium 2.1 Albumin 3.8 Microbiology Microbiology Results: Microbiology 07/16/23 10:15 Blood - Venous Blood Culture - Preliminary Gram positive cocci 07/16/23 22:13 Blood - Venous Blood Culture - Preliminary No growth after 24 hours. 07/16/23 22:13 Blood - Venous Blood Culture - Preliminary No growth after 24 hours. 07/16/23 11:03 Blood - Venous Blood Culture - Preliminary No growth after 24 hours. Progress Note: A&P Assessment and plan (1) Schizophrenia: Status: Acute (2) Achalasia: Status: Acute (3) Aspiration of food: Status: Acute Plan Assessment: 63-year-old gentleman with underlying achalasia lactose schizophrenia admitted with acute respiratory failure secondary to aspiration of food requiring intubation and ventilatory support Plan: Neuro: Acute encephalopathy on the background of likely schizophrenia and seizure, resolved. Continue valproic acid. Cardiac: Shock secondary to pulmonary aspiration, resolved. Pulmonary: Acute respiratory failure secondary to aspiration intubated for airway protection. Extubated uneventfully on 07/17/2023. CT chest with no evidence of retained foreign body. Renal: No acute issues. Endo: No acute issues. GI: No acute issues. Underlying achalasia. ID: Initially empirically covered for aspiration pneumonitis versus pneumonia. Now with normal white cell count. One out of four blood cultures positive is likely a contaminant. Will monitor off antibiotics. Heme/Onc: No acute issues. Psych: No acute issues. Miscellaneous: No acute issues. Prophylaxis: Heparin Diet: Chopped Quality Stroke Does the patient have a stroke diagnosis?: No VTE Prior VTE?: No VTE Risk Level:: Medical - moderate - high VTE Device Contraindication: Treatment Not Indicated VTE Drug Contraindication: N/A - Med Ordered
--- NOTE | 2023-07-18 14:55 | PC.NURSE ---
Assumed care of patient at this time from ICU
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
--- NOTE | 2023-07-18 18:03 | PC.NURSE ---
At this time, patient noted to be in AFib RVR 130's-150's. MD Jade. aware at 1805. Orders to be placed.
--- NOTE | 2023-07-18 18:08 | ECG_ITS ---
Test Reason : SOB Blood Pressure : / mmHG Vent. Rate : 145 BPM Atrial Rate : 000 BPM P-R Int : 000 ms QRS Dur : 080 ms QT Int : 302 ms P-R-T Axes : 000 008 028 degrees QTc Int : 469 ms Atrial fibrillation with rapid ventricular response Nonspecific ST abnormality Abnormal ECG When compared with ECG of 16-JUL-2023 10:51, Atrial fibrillation has replaced Sinus rhythm Vent. rate has increased BY 67 BPM Referred By: Marti Hansen Electronically Signed By:KAYLEY SARKAR
--- NOTE | 2023-07-18 18:16 | P.EN_ITS ---
Event Note Date of Service: 07/18/23 Event Note: hospitalist accept note S 63yo M with psychosis who resides at a care home and was admitted to [facility] for decompensated psychosis. Choked on pancakes and became unresponsive. Intubated and admitted to ICU. Just extubated yesterday. no complaints and currently off supplemental oxygen but then went into rapid AF with ventricular rate in 140s-150s O Temp Pulse Resp BP Pulse Ox O2 Del Method O2 Flow Rate 97.0 F 86 18 140/80 H 96 Room Air 2 07/18/23 16:00 07/18/23 16:00 07/18/23 16:00 07/18/23 16:00 07/18/23 16:00 07/18/23 16:00 07/16/23 10:07 FiO2 25 07/17/23 09:00 Gen: in no acute distress HEENT: sclera anicteric, moist mucus membranes Neck: supple Lungs: clear to auscultation bilaterally Heart: irregularly irregular, rapid Abd: soft, non-tender, non-distended Ext: no edema Skin: warm/well-perfused Neuro: alert, no focal weakness Psych: restricted affect A/P d3 63yo M intubated and admitted to ICU after being unresponsive from choking while at [facility] for psychotic decompensation extubated 07/17/23, [place] [facility] [place] new-onset AF - IV diltiazem, TTE, Cardiology consultation; also check TSH acute encephalopathy due to respiratory failure - resolved aspiration PNA - d3 Unasyn - [employer] consulted, NDD3 solids + thin liquids schizoaffective disroder - Psych consulted + resumed clozapine, continue valproate VTE ppx - UFH dispo - return to [facility] once medically cleared In my clinical judgment, the patient requires continued inpatient hospitalization for the following reasons: new-onset AF, IV ABX Time Spent With Patient Time: Total time managing care of this patient today ____ minutes.
[2023-07-18] MEDS: dilTIAZem HCL 50 MG/10 ML VIAL 20 MG IVPUSH (18:25)
[2023-07-18 19:06] LABS: Thyroid Stimulating Hormone 0.96 uIU/mL (0.32-4.0)
[2023-07-18] MEDS: dilTIAZem HCL 60 MG TABLET PO (20:36)
[2023-07-18] MEDS: cloZAPine 100 MG TABLET 200 MG PO (20:36)
--- NOTE | 2023-07-18 22:16 | ECG_ITS ---
Test Reason : SOB Blood Pressure : / mmHG Vent. Rate : 111 BPM Atrial Rate : 000 BPM P-R Int : 000 ms QRS Dur : 076 ms QT Int : 332 ms P-R-T Axes : 000 036 077 degrees QTc Int : 451 ms Atrial fibrillation with rapid ventricular response Abnormal ECG When compared with ECG of 18-JUL-2023 18:08, No significant change was found Referred By: Marti Hansen Electronically Signed By:KAYLEY SARKAR
--- NOTE | 2023-07-18 22:28 | HE.PHANOTE ---
re valproic acid ATTEMPTED TO FIND VALPROIC ACID MADE 07/18 @1108 WITH NO LUCK. PT WAS TRANSFERRED FROM ICU TO [facility] EARLIER IN THE DAY SO ICU WAS SEARCHED AND IV WAS NOT THERE. IS CURRENTLY BEING REMADE AND WILL BE BROUGHT TO FLOOR WHEN FINISHED.
[2023-07-19] VITALS (7 sets, daily range): BP systolic 104–137; BP diastolic 55–74; PULSE 80–105; RESP 16–20; TEMP 36.6–37.3; O2SAT 94–96; BMI 20.6
[2023-07-19] MEDS: Ampicillin Sodium/Sulbactam Na 3 GM in 0.9 % Sodium Chloride 100 ML IV ×2 (00:08→05:52)
[2023-07-19] MEDS: Valproic Acid (as Sodium Salt) 1,000 MG in Dextrose 5 % 50 ML 60 MG IV ×2 (00:44→20:18)
[2023-07-19] MEDS: Heparin Sodium,Porcine 5,000 UNIT/ML VIAL 5000 UNIT SUBCUT ×3 (05:53→20:17)
[2023-07-19] MEDS: dilTIAZem HCL 60 MG TABLET PO (08:53)
[2023-07-19 09:15] LABS: MANUAL DIFF FLAG NO
[2023-07-19 09:27] LABS: Basophils Percent Auto 0.6 % (0-2); Eosinophils Absolute Auto 0.1 X10*3/uL (0.0-0.4); Eosinophils Percent Auto 1.5 % (0-4); Hematocrit 31.4 % (42.0-52.0); Hemoglobin 10.4 g/dl (14.0-18.0); Imm Gran Abs Auto 0.02 X10*3/uL (0.00-0.03); Imm Gran Pct Auto 0.4 % (0.0-0.4); Lymphocytes Absolute Auto 1.5 X10*3/uL (1.2-4.9); Lymphocytes Percent Auto 26.6 % (20-40); Mean Corpuscular HGB Conc 33.1 g/dl (31.0-36.0); Mean Corpuscular Volume 93.5 fL (80.0-98.0); Mean Platelet Volume 9.9 fL (9.4-12.4); Monocytes Absolute Auto 0.3 X10*3/uL (0.1-1.2); Monocytes Percent Auto 5.9 % (2-11); Neutrophils Absolute Auto 3.6 x10*3/uL (2.0-8.3); Platelet Count 187 X10*3/uL (160-400); Red Blood Count 3.36 X10*6/uL (4.60-5.80); Red Cell Distribution Width 13.2 % (11.0-16.0); White Blood Count 5.5 X10*3/uL (4.8-10.8)
[2023-07-19 09:36] LABS: Albumin Level 3.7 g/dL (3.5-5.0); Anion Gap 15 (12-20); Blood Urea Nitrogen 18 mg/dL (9-16); Carbon Dioxide 25 mmol/L (22-29); Chloride 109 mmol/L (96-108); Creatinine Clr Calc Pharmacy 104.2; Estimated Glomerular Filt Rate > 60; Glucose Random 106 mg/dL (60-115); Magnesium 2.2 mg/dL (1.6-2.6); Phosphorus 3.5 mg/dL (2.7-4.5); Potassium 3.7 mmol/L (3.3-5.1); Sodium 145 mmol/L (135-145)
--- NOTE | 2023-07-19 09:59 | HO.PM.IMPN ---
Subjective Subjective Date of Service: 07/19/23 Interval History: converted to NSR overnight at 1am no symptoms from AF minimal cough not hypoxic Review of Systems Review of Systems: Yes all other systems are reviewed and are negative Physical Exam Vital Signs: Vital Signs: Last Vital Signs Temp 98.4 F 07/19/23 07:59 Pulse 80 07/19/23 07:59 Resp 18 07/19/23 07:59 BP 104/60 07/19/23 07:59 Pulse Ox 96 07/19/23 07:59 O2 Del Method Room Air 07/19/23 07:59 O2 Flow Rate 2 07/16/23 10:07 FiO2 25 07/17/23 09:00 Oxygen Flow Rate 2 07/16/23 10:16 BMI result Body Mass Index 20.6 Gen: in no acute distress HEENT: sclera anicteric, moist mucus membranes Neck: supple Lungs: clear to auscultation bilaterally Heart: regular, no murmurs Abd: soft, non-tender, non-distended Ext: no edema Skin: warm/well-perfused Neuro: alert, no focal weakness Psych: restricted affect Objective Data Active Medications Clozapine (Clozapine 100 Mg Tablet) 200 mg PO BEDTIME [facility] Last Admin: 07/18/23 20:36 Dose: 200 mg Documented By: DUSTIN Diltiazem HCl (Diltiazem Hcl 60 Mg Tablet) 60 mg PO QID [facility]; Protocol Last Admin: 07/19/23 08:53 Dose: 60 mg Documented By: TARA Heparin Sodium (Porcine) (Heparin Sodium,Porcine 5,000 Unit/Ml Vial) 5,000 unit SUBCUT Q8H [facility] Last Admin: 07/19/23 05:53 Dose: 5,000 unit Documented By: KARTHIK Ampicillin Sodium/Sulbactam (Sodium 3 gm/ Sodium Chloride) 100 mls @ 200 mls/hr IV Q6H [facility] Last Infusion: 07/19/23 06:22 Dose: Infused Documented By: DUSTIN Valproic Acid 1,000 mg/ (Dextrose) 60 mls @ 60 mls/hr IV Q24H [facility] Last Infusion: 07/19/23 02:00 Dose: Infused Documented By: KARTHIK Labs 07/19/23 08:56 07/19/23 08:56 Labs: Laboratory Results - last 24 hr 07/18/23 07/19/23 05:38 08:56 MCV 93.5 MCH 31.0 MCHC 33.1 RDW 13.2 Plt Count 187 D MPV 9.9 Immature Gran % (Auto) 0.4 Neut % (Auto) 65.0 Lymph % (Auto) 26.6 Yancey % (Auto) 5.9 Eos % (Auto) 1.5 Baso % (Auto) 0.6 Lymph # (Auto) 1.5 Yancey # (Auto) 0.3 Eos # (Auto) 0.1 Baso # (Auto) 0.0 Abs Immat Gran (auto) 0.02 Absolute Neuts (auto) 3.6 Absolute Nucleated RBC 0.000 Nucleated RBC % (auto) 0.0 Anion Gap 15 Estim Creat Clear Calc 104.2 Estimated GFR > 60 Random Glucose 106 Calcium 9.0 Phosphorus 3.5 Magnesium 2.2 Albumin 3.7 TSH 0.96 Microbiology Microbiology Results: Microbiology 07/16/23 22:13 Blood Culture - Preliminary Blood - Venous No growth after 48 hours. 07/16/23 22:13 Blood Culture - Preliminary Blood - Venous No growth after 48 hours. 07/16/23 11:03 Blood Culture - Preliminary Blood - Venous No growth after 48 hours. 07/16/23 10:15 Blood Culture - Preliminary Blood - Venous Gram positive cocci Assessment and Plan (1) Aspiration of food: Status: Acute Plan d4 63yo M intubated and admitted to ICU after being unresponsive from choking while at [facility] for psychotic decompensation extubated 07/17/23, stepped down to [facility] 07/18/23 new-onset AF - got 1 dose IV diltiazem then PO 60 mg q6h. Converted overnight 07/19/23. Will change to 24-hr diltiazem but reduce dose given soft BP. TTE + Cardiology consult pending. For now no AC given [id number] of 0. acute encephalopathy due to respiratory failure - resolved aspiration PNA - got 3d amp-sul, change to amox-clav x4d - [employer] consulted, NDD3 solids + thin liquids hyperNa - resolved schizoaffective disroder - Psych consulted + resumed clozapine, continue valproate VTE ppx - UFH dispo - return to [facility] once medically cleared In my clinical judgment, the patient requires continued inpatient hospitalization for the following reasons: new-onset AF, IV ABX Total time managing care of this patient today: 45 minutes. Quality Stroke Does the patient have a stroke diagnosis?: No VTE Prior VTE?: No VTE Risk Level:: Medical - moderate - high VTE Device Contraindication: Treatment Not Indicated VTE Drug Contraindication: N/A - Med Ordered
--- NOTE | 2023-07-19 11:04 | P.CONCA_ITS ---
History of Present Illness History of Present Illness Date of Service: 07/19/23 Chief complaint: Acute Respiratory Failure Narrative: This is a cardiology consultation regarding atrial fibrillation. Patient himself denies any cardiac issues like coronary disease myocardial infarction or cardiomyopathy or in fact any other cardiac issues. He has apparently at a facility for psychotic decompensation. From there, he was admitted to ICU after being unresponsive from choking. It seems that he was intubated and then step down to [facility]. In this context, he was found to have atrial fibrillation overnight but then he converted to sinus rhythm. Patient himself denies any cardiac symptoms at this time. He also had some aspiration pneumonia, encephalopathy and they seem to be improved. He was in ICU but he has been moved to the floor now. Review of Systems 2 Review of Systems: Yes all other systems are reviewed and are negative Constitutional: Constitutional: Reports as per HPI and Reports no additional constitutional complaints Eyes: Eyes: Reports as per HPI and Denies no additional eye complaints ENT: Denies system reviewed and no additional complaints, except as documented and Reports as per HPI Cardiovascular: Cardiovascular: Reports as per HPI, Reports no additional cardiovascular complaints, Denies acrocyanosis, Denies cool extremities, Denies chest pain, Denies leg edema, Denies lightheadedness, Denies palpitations and Denies dyspnea Respiratory: Respiratory: Reports as per HPI, Denies no additional respiratory complaints and Denies dyspnea Gastrointestinal: Gastrointestinal: Reports as per HPI and Denies no additional gastrointestinal complaints Genitourinary: Genitourinary: Reports no additional male genitourinary complaints and Reports as per HPI Musculoskeletal: Musculoskeletal: Reports no additional musculoskeletal complaints and Reports as per HPI Integumentary/Breasts: Skin/Breast: Reports system reviewed and no additional complaints, except as docu Neurologic: Reports system reviewed and no additional complaints, except as documented and Reports as per HPI Psychiatric: Psychiatric: Reports no additional psychiatric complaints and Reports as per HPI Endocrine: Endocrine: Reports no additional endocrine complaints, Reports as per HPI and Denies palpitations Hematologic/Lymphatic: Hematologic/Lymphatic: Reports no additional hematologic/lymphatic complaints and Reports as per HPI Allergic/Immunologic: Allergic/Immunologic: Reports no additional allergic/immunologic complaints and Reports as per HPI [facility] Family History Pertinent family history: Patient denies any significant cardiac issues in family. Social History Social History Household Members: Unknown / Unable to assess Housing: Unknown / Unable to assess Unable to assess alcohol history related to: Unknown Patient Tobacco Use Status: Tobacco use Unknown Smoked in Last 30 Days: Yes Use of substances other than those prescribed or required for medical reasons: Unknown Currently Displaying Signs/Symptoms of Drug Intoxication Withdrawal: No Advance Directives: No Advance Directives Information Provided: No Meds Allergies Allergy/AdvReac Type Severity Reaction Status Date / Time No Known Allergies Allergy Verified 07/16/23 10:06 Active Medications: Current Medications Amoxicillin/Clavulanate Potassium (Amoxicillin/Potassium Clav 875 Mg Tablet) 875 mg PO Q12H [facility]YLE Stop: 07/22/23 23:01 Clozapine (Clozapine 100 Mg Tablet) 200 mg PO BEDTIME KYLE Last Admin: 07/18/23 20:36 Dose: 200 mg Diltiazem HCl (Diltiazem Hcl Cd 120 Mg Cap.Er.Deg) 120 mg PO DAILY KYLE; Protocol Heparin Sodium (Porcine) (Heparin Sodium,Porcine 5,000 Unit/Ml Vial) 5,000 unit SUBCUT Q8H KYLE Last Admin: 07/19/23 05:53 Dose: 5,000 unit Valproic Acid 1,000 mg/ (Dextrose) 60 mls @ 60 mls/hr IV Q24H KYLE Last Infusion: 07/19/23 02:00 Dose: Infused Home Medications Medication Instructions Recorded Confirmed Last Taken Type acetaminophen 325 mg tablet 650 mg PO Q4H PRN Pain 07/16/23 07/16/23 Unknown History aspirin 81 mg tablet,delayed 81 mg PO DAILY 07/16/23 07/16/23 Unknown History release atorvastatin 10 mg tablet 10 mg PO DAILY 07/16/23 07/16/23 Unknown History cholecalciferol (vitamin D3) 50 50 mcg PO DAILY 07/16/23 07/16/23 Unknown History mcg (2,000 unit) tablet clozapine 100 mg disintegrating 200 mg PO DAILY 07/16/23 07/16/23 07/16/23 History tablet cyanocobalamin (vitamin B-12) 1,000 mcg PO DAILY 07/16/23 07/16/23 Unknown History 1,000 mcg tablet divalproex 500 mg tablet,delayed 1,000 mg PO BEDTIME 07/16/23 07/16/23 Unknown History release (Depakote) docusate sodium 100 mg capsule 100 mg PO BID 07/16/23 07/16/23 Unknown History famotidine 20 mg tablet 20 mg PO DAILY 07/16/23 07/16/23 Unknown History fludrocortisone 0.1 mg tablet 0.1 mg PO DAILY 07/16/23 07/16/23 Unknown History glycopyrrolate 1 mg tablet 1 mg PO BEDTIME 07/16/23 07/16/23 Unknown History propranolol 60 mg capsule,24 60 mg PO DAILY 07/16/23 07/16/23 Unknown History hr,extended release sennosides 8.6 mg tablet 17.2 mg PO BEDTIME 07/16/23 07/16/23 Unknown History timolol 0.5 % eye drops 1 drp ophthalmic (eye) BID 07/16/23 07/16/23 Unknown History Physical Exam 2 Vital Signs: Vital Signs: Last Vital Signs Temp 98.4 F 07/19/23 07:59 Pulse 80 07/19/23 07:59 Resp 18 07/19/23 07:59 BP 104/60 07/19/23 07:59 Pulse Ox 96 07/19/23 07:59 O2 Del Method Room Air 07/19/23 07:59 O2 Flow Rate 2 07/16/23 10:07 FiO2 25 07/17/23 09:00 Oxygen Flow Rate 2 07/16/23 10:16 BMI result Body Mass Index 20.6 Const: General: comfortable and no acute distress O rientation/consciousness: patient oriented x3 HEENT: Other: Unremarkable Head: Yes normal to inspection Neck: Neck: Yes normal visual inspection Chest: Chest palpation & inspection: normal inspection of the chest Resp: Auscultation: clear to auscultation bilaterally Cardio: Palpation: normal PMI Heart sounds: S1 normal heart sound present, S2 normal heart sound present, no gallops, no murmurs and no rubs GI: Palpation (GI): Soft to palpation Back/Spine/Pelvis: Other: unremarkable Skin: General skin exam: no rashes or lesions noted Neuro: General: patient oriented x3 Extrem: General: Yes normal to inspection Psych: Mental Status: mental status grossly normal Objective Labs and Meds 07/19/23 08:56 07/19/23 08:56 Lab results: Laboratory Results - last 24 hr 07/18/23 07/19/23 05:38 08:56 WBC 5.5 RBC 3.36 L Hgb 10.4 L Hct 31.4 L MCV 93.5 MCH 31.0 MCHC 33.1 RDW 13.2 Plt Count 187 D MPV 9.9 Immature Gran % (Auto) 0.4 Neut % (Auto) 65.0 Lymph % (Auto) 26.6 [place] % (Auto) 5.9 Eos % (Auto) 1.5 Baso % (Auto) 0.6 Lymph # (Auto) 1.5 [place] # (Auto) 0.3 Eos # (Auto) 0.1 Baso # (Auto) 0.0 Abs Immat Gran (auto) 0.02 Absolute Neuts (auto) 3.6 Absolute Nucleated RBC 0.000 Nucleated RBC % (auto) 0.0 Sodium 145 Potassium 3.7 Chloride 109 H Carbon Dioxide 25 Anion Gap 15 BUN 18 H Creatinine 0.64 Estim Creat Clear Calc 104.2 Estimated GFR > 60 Random Glucose 106 Calcium 9.0 Phosphorus 3.5 Magnesium 2.2 Albumin 3.7 TSH 0.96 ECG Interpretation: EKG from last evening shows atrial fibrillation at a rate of 145/Min with nonspecific ST-T changes. Subsequent EKG again shows atrial fibrillation rate of 111/Min. Currently, he is in sinus rhythm. Initial EKG upon admission showed sinus rhythm as well. Assessment and Plan (1) Atrial fibrillation with rapid ventricular response: Status: Acute Plan Atrial fibrillation rapid rate in the context of acute medical illness, ICU stay. Currently, he is back in normal sinus rhythm. High sensitivity troponins as well as cardiac BNP are within normal limits. Check echocardiogram. Atrial fibrillation happen only for few hours and hence in the current setting of acute issues no absolute indication for anticoagulation, unless any clear evidence of cardiomyopathy extra on echocardiogram. For medications, probably just use the home dose of propranolol. Discussed with Dr. Hansen. Procedures Date of Service Date of Service: 07/19/23
[2023-07-19] MEDS: Propranolol HCL LA 60 MG CAP.SA.24H PO (12:52)
[2023-07-19] MEDS: Amoxicillin/Potassium Clav 875 MG TABLET PO (12:52)
[2023-07-19] MEDS: cloZAPine 100 MG TABLET 200 MG PO (20:18)
[2023-07-20] MEDS: Amoxicillin/Potassium Clav 875 MG TABLET PO ×2 (00:40→12:19)
[2023-07-20 04:00] VITALS: BP 134/68; PULSE 84; RESP 18; TEMP 37.1; O2SAT 95
[2023-07-20] MEDS: Heparin Sodium,Porcine 5,000 UNIT/ML VIAL 5000 UNIT SUBCUT ×3 (04:41→19:51)
[2023-07-20 05:49] VITALS: BMI 20.7
--- NOTE | 2023-07-20 07:00 | CA_ITS ---
Transthoracic Echocardiogram Patient (Last, First, Middle): Mick Price, Gender: Male Date of : 1960 Age: 63 Procedure Date: 07/20/2023 Procedure Type: Transthoracic Echocardiogram [place] [facility] [place]: 175.26 cm Weight: 56.7 kg BSA: 1.69 m2 Heart Rate: bpm BP: 118 / 60 mmHg Maintenance Instructor: Referring MD: Marti Hansen MD Symptoms: AF/RVR Study Quality: Adequate Conclusions: - Normal left ventricular size and systolic function. There is mildly increased left ventricular wall thickness. The visually estimated ejection fraction is between 60-65%. - Normal right ventricular cavity size and systolic function. - There is mild dilatation of the sinuses of Valsalva measuring 3.80 cm and mild dilatation of the ascending aorta measuring 3.60 cm. Findings Left Ventricle Normal left ventricular size and systolic function. There is mildly increased left ventricular wall thickness. The visually estimated ejection fraction is between 60-65%. There is no evidence of regional wall motion abnormalities. Diastolic function is normal for age. Right Ventricle Normal right ventricular cavity size and systolic function. Atria The left atrium is normal in size. Aortic Valve There is a normal trileaflet aortic valve. There is no aortic valve stenosis. There is no aortic valve regurgitation. Mitral Valve Normal mitral valve structure and function. There is no mitral valve regurgitation. There is no mitral valve stenosis. Pulmonic Valve The pulmonic valve is normal. There is mild pulmonic valve regurgitation. Tricuspid Valve Normal tricuspid valve structure. There is trace tricuspid valve regurgitation. Tricuspid regurgitation envelope is inadequate for calculation of right ventricular systolic pressure. Normal right atrial pressure. Great Vessels There is mild dilatation of the sinuses of Valsalva measuring 3.80 cm and mild dilatation of the ascending aorta measuring 3.60 cm. The visualized portions of the pulmonary artery and branches are normal. Venous The inferior vena cava is normal in size and collapses greater than 50% with inspiration. Pericardium/Pleural There is no evidence of pericardial effusion. Prior Study Comparison No prior study available for comparison. Measurements 2D Linear Measurements IVSd: 1.16 0.6-0.9/0.6-1.0 cm LVIDd: 3.90 3.9-5.3/4.2-5.9 cm LVIDd Index: 2.31 2.4-3.2/2.2-3.1 cm/m2 LVIDs: 2.56 2.0-3.6 cm LVPWd: 1.04 0.7-1.1 cm LA Diam: 3.60 2.7-3.8/3.0-4.0 cm LAIDs Index: 2.13 1.5-2.3 cm/m2 LV Mass: 174.37 67-162/88-224 g LV Mass Index: 103.18 43-95/49-115 g/m2 LVOT Diam: 2.30 3.0+(-)1.3 cm Mitral Valve MV Pk E: 0.64 MV PK A: 0.77 MV Decel Time: 181.00 E/A: 0.80 E'Lateral: 8.70 E'Medial: 5.87 E/E' Med: 11.00 E/E' Lat: 7.40 PHT: 53.00 MVA PHT: 4.15 Decel Rich: 3.56 Aortic Valve AoV Pk Noel: 1.56 AoV Mn Noel: 0.93 AoV VTI: 0.37 AoV Pk Grad: 10.00 Aov Mn Grad: 4.00 RONNY Cont.VTI: 2.45 LVOT LVOT Pk Noel: 1.00 LVOT Mn Noel: 0.63 LVOT VTI: 0.22 LVOT Pk Grad: 4.00 LVOT Mn Grad: 2.00 LVOT Diam: 2.30 LVOT Area: 4.15 Diastolic Function MV Pk E: 0.64 MV Pk A: 0.77 E/A: 0.80 E'Medial: 5.87 E/E' Med: 11.00 E' Laterial: 8.70 E/E' Lat: 7.40 Right Ventricle TAPSE (mm): 30.00 TVS' Noel: 16.40 Tricuspid Valve TR Pk Noel: 2.26 TR Pk Grad: 20.00 Great Vessels Aorta Sinus of Valsalva: 3.80 2.0-3.5 cm Ao Asc: 3.60 2.1-3.4 cm Pulmonary Valve PV Pk Noel: 1.32 Peak PV Grad: 7.00 Updated in Other Vendor System with Status of Final Cisco Will MD electronically signed on 07/20/2023 1:12:10 PM with status of Final
[2023-07-20 07:26] VITALS: BP 136/74; PULSE 84; RESP 20; TEMP 36.5; O2SAT 94
[2023-07-20] MEDS: Propranolol HCL LA 60 MG CAP.SA.24H PO (09:17)
[2023-07-20] MEDS: Lidocaine 4 % Patch ADH..PATCH 1 PATCH TRANSDERMA (09:27)
[2023-07-20 11:02] VITALS: BP 132/77; PULSE 78; RESP 20; TEMP 36.6; O2SAT 95
--- NOTE | 2023-07-20 11:47 | MHC.SL.SWA ---
Speech Pathologist Impression: Risk of aspiration Risk of Aspiration Due to: Hx of Recent Extubation Dysphasia Diet Status: No change Liquid Consistency and Strategies for Safe Swallow: Liquid Intake Recommendation: Thin Liquid Intake Strategies: Small Sips Solid Food Consistency: Dietary Recommendations: Chopped/Advanced (NDD3) Additional Modifications to Solid Foods: Further ST intervention no longer warranted as pt appears to be on safest, least restrictive textures. Recommend continue w/ aspiration precautions and periodic check-in's during meal time. 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 Oral Medication Intake: Whole with Liquid Please contact the pharmacy regarding appropriate crushable or liquid drug formulations that are available whenever modified delivery is recommended. Compensatory Strategies and Precautions to be Taken for Safe Swallow: Sitting Upright (90 deg) Double Swallow Small Bites and Sips Alternate Liquids/Solids Rate of Ingestion Change Avoid Specific Foods Supervision While Eating and Drinking for Safe Swallow: Intermittent Supervision Foods to Avoid: Tough difficult to chew solids, too large pieces of food. Swallowing Recommended Treatments: Compens. Strategy Educat. Recommendation for Speech: D/C Clinical Marketing Manager Clinican/Clinical Fellow: No Supervisory Statement: I have reviewed and agree with the student/clinical fellow's documentation: N/A Speech Language Pathologist: Karyn Tilley M.A., CCC-[employer]ER
--- NOTE | 2023-07-20 11:54 | PM.PNCARD ---
Subjective Subjective Date of Service: 07/20/23 Interval history: Seen examined at bedside. Asymptomatic. Getting echocardiography. In sinus rhythm currently. Physical Exam Vital Signs: Last Vital Signs Temp 97.9 F 07/20/23 11:02 Pulse 78 07/20/23 11:02 Resp 20 07/20/23 11:02 BP 132/77 07/20/23 11:02 Pulse Ox 95 07/20/23 11:02 O2 Del Method Room Air 07/20/23 11:02 O2 Flow Rate 2 07/16/23 10:07 FiO2 25 07/17/23 09:00 Oxygen Flow Rate 2 07/16/23 10:16 BMI result Body Mass Index 20.7 GENERAL APPEARANCE: in no acute distress. NECK: no carotid bruit, no jugular venous distention. SKIN: no suspicious lesions, warm and dry. HEART: no murmurs, regular rate and rhythm. LUNGS: clear to auscultation bilaterally. ABDOMEN: soft, nontender. EXTREMITIES: no edema. PERIPHERAL PULSES: equal. Objective Labs and Meds 07/19/23 08:56 07/19/23 08:56 Progress Note: A&P Assessment and plan (1) Atrial fibrillation with rapid ventricular response: Status: Acute Plan [age] gentleman with background of aspiration pneumonia and episode of paroxysmal atrial fibrillation. He is back in sinus rhythm at this point. We will review echocardiography. Would hold off on anticoagulation currently. If he has prolonged episode more than 6 hours of atrial fibrillation on telemetry then we may have to consider anticoagulation. Recommend cardiac event monitor as outpatient. Thank you for allowing me to participate in the care of your patient. Please feel free to contact me if you have any questions. Time Spent With Patient Time: Total time managing care of this patient today ____ minutes. Progress Note: Quality Stroke Does the patient have a stroke diagnosis?: No Procedures Date of Service Date of Service: 07/20/23
--- NOTE | 2023-07-20 13:20 | P.PNIM_ITS ---
Subjective Subjective Date of Service: 07/20/23 Interval History: coughing not hypoxic no palpitations no recurrent AF Review of Systems Review of Systems: Yes all other systems are reviewed and are negative Physical Exam 2 Vital Signs: Vital Signs: Last Vital Signs Temp 97.9 F 07/20/23 11:02 Pulse 78 07/20/23 11:02 Resp 20 07/20/23 11:02 BP 132/77 07/20/23 11:02 Pulse Ox 95 07/20/23 11:02 O2 Del Method Room Air 07/20/23 11:02 O2 Flow Rate 2 07/16/23 10:07 FiO2 25 07/17/23 09:00 Oxygen Flow Rate 2 07/16/23 10:16 BMI result Body Mass Index 20.7 Gen: in no acute distress HEENT: sclera anicteric, moist mucus membranes Neck: supple Lungs: clear to auscultation bilaterally Heart: regular, no murmurs Abd: soft, non-tender, non-distended Ext: no edema Skin: warm/well-perfused Neuro: alert, no focal weakness Psych: restricted affect Objective Data Active Medications Amoxicillin/Clavulanate Potassium (Amoxicillin/Potassium Clav 875 Mg Tablet) 875 mg PO Q12H [facility] Stop: 07/22/23 23:01 Last Admin: 07/20/23 12:19 Dose: 875 mg Documented By: ANDRA Clozapine (Clozapine 100 Mg Tablet) 200 mg PO BEDTIME [facility] Last Admin: 07/19/23 20:18 Dose: 200 mg Documented By: JAY Heparin Sodium (Porcine) (Heparin Sodium,Porcine 5,000 Unit/Ml Vial) 5,000 unit SUBCUT Q8H KYLE Last Admin: 07/20/23 12:19 Dose: 5,000 unit Documented By: ANDRA Valproic Acid 1,000 mg/ (Dextrose) 60 mls @ 60 mls/hr IV Q24H [facility] Last Infusion: 07/19/23 21:27 Dose: Infused Documented By: JAY Lidocaine (Lidocaine 4 % Patch Adh..Patch) 1 patch TRANSDERMA DAILY [facility]; Protocol Last Admin: 07/20/23 09:27 Dose: 1 patch Documented By: ANDRA Propranolol HCl (Propranolol Hcl La 60 Mg Cap.Sa.24h) 60 mg PO DAILY KYLE; Protocol Last Admin: 07/20/23 09:17 Dose: 60 mg Documented By: ANDRA Labs 07/19/23 08:56 07/19/23 08:56 Microbiology Microbiology Results: Microbiology 07/16/23 10:15 Blood Culture - Preliminary Blood - Venous Streptococcus viridans group Coag negative Staphylococcus Assessment and Plan (1) Aspiration of food: Status: Acute Plan d5 63yo M intubated and admitted to ICU after being unresponsive from choking while admitted to [facility] for psychotic decompensation extubated 07/17/23, stepped down to [facility] [place] 07/18/23 new-onset AF - got 1 dose IV diltiazem then PO 60 mg q6h. Converted overnight 07/19/23. Resumed home propranolol. No AC given [id number] of 0. TTE 07/20/23: - Normal left ventricular size and systolic function. There is mildly increased left ventricular wall thickness. The visually estimated ejection fraction is between 60-65%. - Normal right ventricular cavity size and systolic function. 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 Quality Stroke Does the patient have a stroke diagnosis?: No VTE Prior VTE?: No VTE Risk Level:: Medical - moderate - high VTE Device Contraindication: Treatment Not Indicated VTE Drug Contraindication: N/A - Med Ordered
--- NOTE | 2023-07-20 14:00 | PM.DS ---
DS: Providers Provider Date of Service: 07/20/23 Date of admission: 07/16/23 12:00 Date of discharge: 07/20/23 Primary care physician: Unknown Physician Consults: 07/18/23 12:17 Consult to Psychiatry Routine Consulting Provider: Psych Covering Reason for consultation: from [facility]- intubate/exutabted; was on Clozaril 07/19/23 09:58 Consult to Cardiology Routine Consulting Provider[place] [facility] [place] [facility] Reason for consultation: new onset AF 07/20/23 11:43 Consult to Care Team Stat Comment: Reason for consultation: medically cleared for return to [facility] 07/20/23 13:27 Consult to Care Team Stat Comment: Reason for consultation: Medically cleared. We need the bed DIRK DS: Diagnosis Discharge Diagnosis (1) Aspiration of food: Status: Acute (2) Atrial fibrillation with rapid ventricular response: Status: Acute (3) Schizophrenia: Status: Acute (4) Acute respiratory failure: Status: Acute (5) Aspiration pneumonia: Status: Acute (6) Hypernatremia: Status: Acute (7) Acute metabolic encephalopathy: Status: Acute DS: Summary Hospital Course Hospital Course: from admission History and Physical by heating plant superintendent Clayton Gipson MD, 07/16/23: Chief Complaint: Alteration of mental status, acute respiratory failure aspiration of food 63-year-old gentleman with underlying history of anxiety, depression, GERD, achalasia, also likely schizophrenia admitted on 07/16/2023 from [facility] after an episode of unresponsiveness associated with choking on foot during the 1st in emergency room patient unable to protect airway with foot particles in the [mouth], intubated for aspiration and transferred to intensive care unit. 63yo M intubated and admitted to ICU after being unresponsive from choking while admitted to [facility] for psychotic decompensation. He was extubated 07/17/23 and stepped down to [facility] 07/18/23. Hospital course by problem: acute encephalopathy due to respiratory failure due to aspiration PNA - Resolved; weaned off oxygen in the ICU and mental status improved. aspiration PNA - Treated with ampicillin-sulbactam 07/16-07/18/23, amoxicillin/clavulanate 07/19-07/22/23 [to complete upon discharge]. - BIN WORKER consulted: NDD3 solids + thin liquids lone AF - Brief episode on 07/18/23 likely due to beta-gary withdrawal. Got 1 dose IV diltiazem then PO 60 mg q6h. Converted to NSR around 1am on 07/19/23. Resumed home propranolol and AF did not recur. No anticoagulation indicated given [id number] of 0. TTE 07/20/23: - Normal left ventricular size and systolic function. There is mildly increased left ventricular wall thickness. The visually estimated ejection fraction is between 60-65%. - Normal right ventricular cavity size and systolic function. - There is mild dilatation of the sinuses of Valsalva measuring 3.80 cm and mild dilatation of the ascending aorta measuring 3.60 cm - Can follow up with Cardiology as outpatient in 2-3 weeks hyperNa - Resolved with encouraging free water intake. schizoaffective disroder - Psychiatry consulted + resumed clozapine. Valproate continued. Discharged back to [facility] for resumption of psychiatric care. Time Attestation Discharge coordination time: Greater than 30 minutes Quality: Safe Use of Opioids Does Pt have an Active Cancer Diagnosis on the Problem List?: No Quality: Stroke Does the patient have a stroke diagnosis?: No Physical Exam Vital Signs: Vital Signs: Last Vital Signs Temp 97.9 F 07/20/23 11:02 Pulse 78 07/20/23 11:02 Resp 20 07/20/23 11:02 BP 132/77 07/20/23 11:02 Pulse Ox 95 07/20/23 11:02 O2 Del Method Room Air 07/20/23 11:02 O2 Flow Rate 2 07/16/23 10:07 FiO2 25 07/17/23 09:00 Oxygen Flow Rate 2 07/16/23 10:16 BMI result Body Mass Index 20.7 Gen: in no acute distress HEENT: sclera anicteric, moist mucus membranes Neck: supple Lungs: clear to auscultation bilaterally Heart: regular, no murmurs Abd: soft, non-tender, non-distended Ext: no edema Skin: warm/well-perfused Neuro: alert, no focal weakness Psych: restricted affect DS: Data Data Completed and Pending Completed studies during hospitalization [Text1]: Laboratory Results WBC 5.5 X10*3/uL (4.8-10.8) 07/19/23 08:56 RBC 3.36 X10*6/uL (4.60-5.80) L 07/19/23 08:56 Hgb 10.4 g/dl (14.0-18.0) L 07/19/23 08:56 Hct 31.4 % (42.0-52.0) L 07/19/23 08:56 MCV 93.5 fL (80.0-98.0) 07/19/23 08:56 MCH 31.0 pg (27.0-33.0) 07/19/23 08:56 MCHC 33.1 g/dl (31.0-36.0) 07/19/23 08:56 RDW 13.2 % (11.0-16.0) 07/19/23 08:56 Plt Count 187 X10*3/uL (160-400) D 07/19/23 08:56 MPV 9.9 fL (9.4-12.4) 07/19/23 08:56 Immature Gran % (Auto) 0.4 % (0.0-0.4) 07/19/23 08:56 Neut % (Auto) 65.0 % (45-73) 07/19/23 08:56 Lymph % (Auto) 26.6 % (20-40) 07/19/23 08:56 [place] % (Auto) 5.9 % (2-11) 07/19/23 08:56 Eos % (Auto) 1.5 % (0-4) 07/19/23 08:56 Baso % (Auto) 0.6 % (0-2) 07/19/23 08:56 Lymph # (Auto) 1.5 X10*3/uL (1.2-4.9) 07/19/23 08:56 [place] # (Auto) 0.3 X10*3/uL (0.1-1.2) 07/19/23 08:56 Eos # (Auto) 0.1 X10*3/uL (0.0-0.4) 07/19/23 08:56 Baso # (Auto) 0.0 X10*3/uL (0.0-0.2) 07/19/23 08:56 Abs Immat Gran (auto) 0.02 X10*3/uL (0.00-0.03) 07/19/23 08:56 Absolute Neuts (auto) 3.6 x10*3/uL (2.0-8.3) 07/19/23 08:56 Absolute Nucleated RBC 0.000 X10*3/uL (0.0-0.012) 07/19/23 08:56 Nucleated RBC % (auto) 0.0 /100WBC (0.0-0.2) 07/19/23 08:56 PT 13.0 SEC (11.1-13.3) 07/16/23 10:15 INR 1.1 (0.9-1.1) 07/16/23 10:15 APTT 30.8 SEC (26.0-36.4) 07/16/23 10:15 VBG pH 7.49 (7.32-7.43) H 07/17/23 05:31 VBG pCO2 36 mmHg 07/17/23 05:31 VBG pO2 53 mmHg 07/17/23 05:31 VBG HCO3 28 mmol/L (22-26) H 07/17/23 05:31 VBG O2 Saturation 84.0 % 07/17/23 05:31 VBG Base Excess 4.9 mmol/L 07/17/23 05:31 Sodium 145 mmol/L (135-145) 07/19/23 08:56 Potassium 3.7 mmol/L (3.3-5.1) 07/19/23 08:56 Chloride 109 mmol/L (96-108) H 07/19/23 08:56 Carbon Dioxide 25 mmol/L (22-29) 07/19/23 08:56 Anion Gap 15 (12-20) 07/19/23 08:56 BUN 18 mg/dL (9-16) H 07/19/23 08:56 Creatinine 0.64 mg/dL (0.5-1.4) 07/19/23 08:56 Estim Creat Clear Calc 104.2 07/19/23 08:56 Estimated GFR > 60 07/19/23 08:56 POC Glucose 138 mg/dL (60-115) H 07/16/23 17:46 Random Glucose 106 mg/dL (60-115) 07/19/23 08:56 Lactic Acid 1.9 mmol/L (0.5-2.0) 07/16/23 22:13 Lactic Acid F/U @ 2Hr 2.2 mmol/L (0.5-2.0) H* 07/16/23 12:32 Lactic Acid F/U @ 4Hr 2.0 mmol/L (0.5-2.0) 07/16/23 14:46 Calcium 9.0 mg/dL (8.4-10.2) 07/19/23 08:56 Phosphorus 3.5 mg/dL (2.7-4.5) 07/19/23 08:56 Magnesium 2.2 mg/dL (1.6-2.6) 07/19/23 08:56 Total Bilirubin 0.5 mg/dL (0.0-1.0) 07/16/23 10:15 Direct Bilirubin 0.2 mg/dL (0.0-0.5) 07/16/23 10:15 AST 23 U/L (5-37) 07/16/23 10:15 ALT 12 U/L (0-40) 07/16/23 10:15 Alkaline Phosphatase 57 U/L (39-117) 07/16/23 10:15 Total Creatine Kinase 502 U/L (38-174) H 07/16/23 10:15 Troponin I High Sens 3.3 ng/L (<3.5-35.0) 07/16/23 10:15 B-Natriuretic Peptide 30 pg/mL (<100) 07/16/23 10:15 Total Protein 6.0 g/dL (6.5-8.0) L 07/16/23 10:15 Albumin 3.7 g/dL (3.5-5.0) 07/19/23 08:56 TSH 0.96 uIU/mL (0.32-4.0) 07/18/23 05:38 Urine Color Yellow 07/16/23 11:27 Urine Appearance Clear 07/16/23 11:27 Urine pH 5.5 (5.0-9.0) 07/16/23 11:27 Ur Specific [place] >= 1.030 (1.005-1.025) H 07/16/23 11:27 Urine Protein Negative mg/dL (Neg-Trace) 07/16/23 11:27 Urine Glucose (UA) Negative mg/dL (Negative) 07/16/23 11:27 Urine Ketones Trace mg/dL (Negative) 07/16/23 11:27 Urine Blood Negative (Negative) 07/16/23 11:27 Urine Nitrite Negative (Negative) 07/16/23 11:27 Ur Leukocyte Esterase Negative (Negative) 07/16/23 11:27 Urine RBC 0-2 /HPF (0-2) 07/16/23 11:27 Urine WBC 0-5 /HPF (0-5) 07/16/23 11:27 Ur Squamous Epith Cells 0-2 /HPF (0-2) 07/16/23 11:27 Urine Bacteria None Seen (None Seen) 07/16/23 11:27 Hyaline Casts 0-2 /LPF (0-2) 07/16/23 11:27 Ethyl Alcohol < 10 mg/dL 07/16/23 10:[address] 07/16/23 11:28 IMPRESSION: No acute intracranial process seen. There is no visible acute fracture, dislocation subluxation in cervical spine. There is facet joint arthropathy as described above. Head CT 07/16/23 11:28 IMPRESSION: No acute intracranial process seen. There is no visible acute fracture, dislocation subluxation in cervical spine. There is facet joint arthropathy as described above. Abdomen/Pelvis CT 07/16/23 11:29 IMPRESSION: Severe constipation. Dependent atelectasis. 3 mm right lower lobe pulmonary nodule. Chest CT 07/16/23 11:30 IMPRESSION: Severe constipation. Dependent atelectasis. 3 mm right lower lobe pulmonary nodule. Chest X-Ray 07/16/23 18:04 IMPRESSION: 1. Endotracheal tube terminates at 4.8 cm above the micheline. 2. Enteric tube side port projects over the gastroesophageal junction. Recommend mild advancement. 3. No acute cardiopulmonary findings. Discharge Plan Discharge Patient Disposition: Xfer Psychiatric Hosp Discharge Diagnosis: respiratory failure due to aspiration pneumonia lone atrial fibrillation schizophrenia Referrals: Prashanth Epstein MD [Physician] - 2 Weeks Physician,Unknown J [Primary Care Provider] - 1 Week Discharge Medications: New amoxicillin-pot clavulanate 875-125 mg Tablet 1 tab PO Q12H Qty: 5 0RF Continued glycopyrrolate 1 mg tablet 1 mg PO BEDTIME acetaminophen 325 mg Tablet 650 mg PO Q4H PRN (Reason: Pain) atorvastatin 10 mg Tablet 10 mg PO DAILY propranolol 60 mg capsule,extended release 24 hr 60 mg PO DAILY cyanocobalamin (vitamin B-12) 1,000 mcg Tablet 1,000 mcg PO DAILY divalproex [Depakote] 500 mg tablet,delayed release (DR/EC) 1,000 mg PO BEDTIME aspirin 81 mg Tablet,Delayed Release (Dr/Ec) 81 mg PO DAILY famotidine 20 mg Tablet 20 mg PO DAILY docusate sodium 100 mg Capsule 100 mg PO BID fludrocortisone 0.1 mg Tablet 0.1 mg PO DAILY clozapine 100 mg tablet,disintegrating 200 mg PO DAILY cholecalciferol (vitamin D3) 50 mcg (2,000 unit) Tablet 50 mcg PO DAILY sennosides 8.6 mg Tablet 17.2 mg PO BEDTIME timolol 0.5 % Drops 1 drp OPHTHALMIC (EYE) BID Discharge Orders: Discharge Order (Routine); Ordered 07/20/23 Ordered By: Marti Hansen Diet: Advance to usual diet Activity on Discharge: As tolerated Stand Alone Forms: Patient Portal Discharge page Care Plan Goals: recovery from pneumonia Health Concerns: respiratory failure due to aspiration pneumonia lone atrial fibrillation schizophrenia Plan of Treatment: - NDD3 solids/thin liquids - amoxicillin-clavulanate 875-125 mg twice daily x 2 more days - resume propranolol + follow up with Cardiology in 2 weeks - resume Depakote and clozapine; return to [facility] for inpatient psychiatric treatment Please follow up with your primary care doctor within 1 week of discharge from [facility]. Return to the hospital if you experience recurrent or worsening symptoms.
--- NOTE | 2023-07-20 14:03 | MHC.CM.PN ---
Addendum entered by Tiffani Jackson RN 07/20/23 16:14: CM STILL AWAITING BED OFFER FROM [facility] FOR [facility]. Original Note: PER [facility] PT APPROP FOR IPLOC, BED SEARCH TEAM TO FAX REF TO [facility] TO DETERMINE IF THEY CAN TAKE PT BACK, PER PSYCH THERE ARE NO BEDS IN HOUSE.
[2023-07-20 15:56] VITALS: BP 140/67; PULSE 67; RESP 15; TEMP 36.2; O2SAT 97
[2023-07-20 19:17] VITALS: BP 153/75; PULSE 54; RESP 20; TEMP 35.9; O2SAT 94
[2023-07-20] MEDS: Divalproex Sodium 500 MG TABLET.DR 1000 MG PO (19:51)
[2023-07-20] MEDS: cloZAPine 100 MG TABLET 200 MG PO (19:51)
[2023-07-20 23:02] VITALS: BP 128/73; PULSE 71; RESP 20; TEMP 35.9; O2SAT 94
[2023-07-21] MEDS: Amoxicillin/Potassium Clav 875 MG TABLET PO ×2 (00:31→10:34)
[2023-07-21 04:00] VITALS: BP 105/22; PULSE 74; RESP 21; TEMP 36.2; O2SAT 98
[2023-07-21] MEDS: Heparin Sodium,Porcine 5,000 UNIT/ML VIAL 5000 UNIT SUBCUT ×2 (04:59→10:34)
[2023-07-21 07:14] VITALS: BP 134/72; PULSE 75; RESP 18; TEMP 36.3; O2SAT 94
[2023-07-21] MEDS: Propranolol HCL LA 60 MG CAP.SA.24H PO (09:06)
[2023-07-21] MEDS: Lidocaine 4 % Patch ADH..PATCH 1 PATCH TRANSDERMA (09:07)
[2023-07-21 11:25] LABS: COVID-19 Test Negative (Negative); IDNOW Serial# 9DB6401D
[2023-07-21 11:33] VITALS: BP 139/85; PULSE 86; RESP 18; TEMP 36.4; O2SAT 96
--- NOTE | 2023-07-21 12:02 | PM.DS ---
DS: Providers Provider Date of Service: 07/21/23 Date of admission: 07/16/23 12:00 Date of discharge: 07/21/23 Primary care physician: Unknown Physician Consults: 07/18/23 12:17 Consult to Psychiatry Routine Consulting Provider: Psych Covering Reason for consultation: from [facility]- intubate/exutabted; was on Clozaril 07/19/23 09:58 Consult to Cardiology Routine Consulting Provider: [facility] Cardi[facility] Services Reason for consultation: new onset AF 07/20/23 11:43 Consult to Care Team Stat Comment: Reason for consultation: medically cleared for return to [facility] 07/20/23 13:27 Consult to Care Team Stat Comment: Reason for consultation: Medically cleared. We need the bed DIRK Attending physician on discharge: Ricardo Mancuso Discharging clinician: Ricardo Mancuso DS: Diagnosis Discharge Diagnosis (1) Aspiration of food: Status: Acute (2) Atrial fibrillation with rapid ventricular response: Status: Acute (3) Schizophrenia: Status: Acute (4) Acute respiratory failure: Status: Acute (5) Aspiration pneumonia: Status: Acute (6) Hypernatremia: Status: Acute (7) Acute metabolic encephalopathy: Status: Acute DS: Summary Hospital Course Hospital Course: Patient was discharged yesterday but could Go because need to go to inpatient psych bed. from admission History and Physical by cryptozoologist Clayton Gipson MD, 07/16/23: Chief Complaint: Alteration of mental status, acute respiratory failure aspiration of food 63-year-old gentleman with underlying history of anxiety, depression, GERD, achalasia, also likely schizophrenia admitted on 07/16/2023 from [facility] after an episode of unresponsiveness associated with choking on foot during the 1st in emergency room patient unable to protect airway with foot particles in the [mouth], intubated for aspiration and transferred to intensive care unit. 63yo M intubated and admitted to ICU after being unresponsive from choking while admitted to [facility] for psychotic decompensation. He was extubated 07/17/23 and stepped down to [facility] 07/18/23. Hospital course by problem: acute encephalopathy due to respiratory failure due to aspiration PNA - Resolved; weaned off oxygen in the ICU and mental status improved. aspiration PNA - Treated with ampicillin-sulbactam 07/16-07/18/23, amoxicillin/clavulanate 07/19-07/22/23 [to complete upon discharge]. - LIGHTING ADVISER consulted: NDD3 solids + thin liquids lone AF - Brief episode on 07/18/23 likely due to beta-gary withdrawal. Got 1 dose IV diltiazem then PO 60 mg q6h. Converted to NSR around 1am on 07/19/23. Resumed home propranolol and AF did not recur. No anticoagulation indicated given [id number] of 0. TTE 07/20/23: - Normal left ventricular size and systolic function. There is mildly increased left ventricular wall thickness. The visually estimated ejection fraction is between 60-65%. - Normal right ventricular cavity size and systolic function. - There is mild dilatation of the sinuses of Valsalva measuring 3.80 cm and mild dilatation of the ascending aorta measuring 3.60 cm - Can follow up with Cardiology as outpatient in 2-3 weeks hyperNa - Resolved with encouraging free water intake. schizoaffective disroder - Psychiatry consulted + resumed clozapine. Valproate continued. going for inpatient psych of psychiatric care. on chest imaging ( please see imaging section) incidental findin mm right lower lobe pulmonary nodule. Patient is to follow up outpatient with PCP for further management of pulmonary nodule. Time Attestation Discharge coordination time: Greater than 30 minutes Quality: Safe Use of Opioids Does Pt have an Active Cancer Diagnosis on the Problem List?: No Quality: Stroke Does the patient have a stroke diagnosis?: No Physical Exam Vital Signs: Vital Signs: Last Vital Signs Temp 97.5 F 07/21/23 11:33 Pulse 86 07/21/23 11:33 Resp 18 07/21/23 11:33 BP 139/85 07/21/23 11:33 Pulse Ox 96 07/21/23 11:33 O2 Del Method Room Air 07/21/23 11:33 O2 Flow Rate 2 07/16/23 10:07 FiO2 25 07/17/23 09:00 Oxygen Flow Rate 2 07/16/23 10:16 BMI result Body Mass Index 20.7 Physical exam unchanged from 07/20/23-please see dc summary from 07/20/23. DS: Data Data Completed and Pending Labs on day of discharge: Laboratory Results - last 24 hr 07/21/23 10:35 COVID-19 ([facility]ZARO) Negative COVID-19 Clin Com See Note Preliminary micro results at discharge 07/16/23 10:15 Blood Culture - Preliminary Blood - Venous Streptococcus viridans group Coag negative Staphylococcus 07/16/23 22:13 Blood Culture - Preliminary Blood - Venous No growth after 48 hours. 07/16/23 22:13 Blood Culture - Preliminary Blood - Venous No growth after 48 hours. 07/16/23 11:03 Blood Culture - Preliminary Blood - Venous No growth after 48 hours. Imaging Chest x-ray: Radiologist's impression: ITS Impressions Chest X-Ray 07/16/23 10:22 IMPRESSION: Tip of endotracheal tube 5 cm above the micheline. Emphysematous lungs are clear. Cervical Spine CT 07/16/23 11:28 IMPRESSION: No acute intracranial process seen. There is no visible acute fracture, dislocation subluxation in cervical spine. There is facet joint arthropathy as described above. Head CT 07/16/23 11:28 IMPRESSION: No acute intracranial process seen. There is no visible acute fracture, dislocation subluxation in cervical spine. There is facet joint arthropathy as described above. Abdomen/Pelvis CT 07/16/23 11:29 IMPRESSION: Severe constipation. Dependent atelectasis. 3 mm right lower lobe pulmonary nodule. Chest CT 07/16/23 11:30 IMPRESSION: Severe constipation. Dependent atelectasis. 3 mm right lower lobe pulmonary nodule. Chest X-Ray 07/16/23 15:37 IMPRESSION: 1. No acute cardiopulmonary process seen. 2. Tip of endotracheal tube is 8.4 cm above the micheline. 3. Right jugular central catheter tip is in mid SVC. Chest X-Ray 07/16/23 18:04 IMPRESSION: 1. Endotracheal tube terminates at 4.8 cm above the micheline. 2. Enteric tube side port projects over the gastroesophageal junction. Recommend mild advancement. 3. No acute cardiopulmonary findings. Discharge Plan Discharge Patient Disposition: Xfer Psychiatric Hosp Discharge Diagnosis: respiratory failure due to aspiration pneumonia lone atrial fibrillation schizophrenia Referrals: Prashanth Epstein MD [Physician] - 2 Weeks Physician,Unknown J [Primary Care Provider] - 1 Week Discharge Medications: New amoxicillin-pot clavulanate 875-125 mg Tablet 1 tab PO Q12H Qty: 5 0RF Continued glycopyrrolate 1 mg tablet 1 mg PO BEDTIME acetaminophen 325 mg Tablet 650 mg PO Q4H PRN (Reason: Pain) atorvastatin 10 mg Tablet 10 mg PO DAILY propranolol 60 mg capsule,extended release 24 hr 60 mg PO DAILY cyanocobalamin (vitamin B-12) 1,000 mcg Tablet 1,000 mcg PO DAILY divalproex [Depakote] 500 mg tablet,delayed release (DR/EC) 1,000 mg PO BEDTIME aspirin 81 mg Tablet,Delayed Release (Dr/Ec) 81 mg PO DAILY famotidine 20 mg Tablet 20 mg PO DAILY docusate sodium 100 mg Capsule 100 mg PO BID fludrocortisone 0.1 mg Tablet 0.1 mg PO DAILY clozapine 100 mg tablet,disintegrating 200 mg PO DAILY cholecalciferol (vitamin D3) 50 mcg (2,000 unit) Tablet 50 mcg PO DAILY sennosides 8.6 mg Tablet 17.2 mg PO BEDTIME timolol 0.5 % Drops 1 drp OPHTHALMIC (EYE) BID Discharge Orders: Discharge Order (Routine); Ordered 07/20/23 Ordered By: Marti Hansen Diet: Advance to usual diet Activity on Discharge: As tolerated Stand Alone Forms: Patient Portal Discharge page Care Plan Goals: recovery from pneumonia Health Concerns: respiratory failure due to aspiration pneumonia lone atrial fibrillation schizophrenia Plan of Treatment: - NDD3 solids/thin liquids - amoxicillin-clavulanate 875-125 mg twice daily x 2 more days,repeat chest imaging in 3-4 weeks to see resolution of pneumonia. - resume propranolol + follow up with Cardiology in 2 weeks - resume Depakote and clozapine; going to inpatient psychiatric treatment Please follow up with your primary care doctor within 1 week of discharge from [facility]. Return to the hospital if you experience recurrent or worsening symptoms.
[2023-07-21 13:20] LABS: Amphetamine Screen Urine Not Detected (Not Detect); Barbiturates, Urine Not Detected (Not Detect); Benzodiazepines Screen Urine Not Detected (Not Detect); Cannabinoid Screen Urine Not Detected (Not Detect); Cocaine Screen Urine Not Detected (Not Detect); Fentanyl, urine Not Detected (Not Detect); Opiate Screen Urine Not Detected (Not Detect); Phencyclidine Screen Urine Not Detected (Not Detect)
[2023-07-21 15:33] VITALS: BP 136/86; PULSE 86; RESP 18; TEMP 36.7; O2SAT 97
== END 2023-07-21 17:13 | DRG 137 ==
LOC: HO.ED 12:08 → HO.EDOVER 12:13 → HO.ICU 12:41 → HO.IMC 07-18 14:07
PROVIDERS: Family Medicine; Nurse Practitioner Family; Physician Assistant; Admitting Provider Internal Medicine Pulmonary Disease; Emergency Provider Emergency Medicine Emergency Medical Services; Visit Provider Internal Medicine
DX: J69.0 Pneumonitis due to inhalation of food and vomit (principal); J96.00 Acute respiratory failure, unspecified whether with hypoxia or hypercapnia; R57.9 Shock, unspecified; G93.41 Metabolic encephalopathy; K22.0 Achalasia of cardia; I48.91 Unspecified atrial fibrillation; E87.0 Hyperosmolality and hypernatremia; F20.9 Schizophrenia, unspecified; Z20.822 Contact with and (suspected) exposure to COVID-19; Z79.82 Long term (current) use of aspirin; Z79.899 Other long term (current) drug therapy
CPT/HCPCS: 36415; 70450; 71045; 71260; 72125; 74177; 80048; 80076; 80307; 81001; 82040; 82550; 82803; 82947; 83605; 83735; 83880; 84100; 84443; 84484; 85025; 85610; 85730; 87040; 87147; 87205; 87635; 92526; 92610; 93005; 93306; 94002; 94003; 94799; 99285; C1758; J0295; J0456; J0692; J1644; J2371; J2704; J3010; P9047; Q9967; S9485

== ENCOUNTER → 2023-07-16 10:07 | Outpatient (BNV) | payer OTHER, SELFPAY | PROVIDERS: Admitting Provider Internal Medicine Pulmonary Disease; Emergency Provider Emergency Medicine Emergency Medical Services; Visit Provider Internal Medicine | DX: I45.81 Long QT syndrome (principal) | CPT/HCPCS: 93010 ==

== ENCOUNTER 2023-07-16 12:00 | Outpatient (BNV) | payer OTHER, SELFPAY | END 2023-07-18 18:08 | PROVIDERS: Admitting Provider Internal Medicine Pulmonary Disease; Emergency Provider Emergency Medicine Emergency Medical Services; Visit Provider Internal Medicine | DX: I48.91 Unspecified atrial fibrillation (principal); R94.31 Abnormal electrocardiogram [ECG] [EKG] | CPT/HCPCS: 93010 ==

== ENCOUNTER 2023-07-16 12:00 | Outpatient (BNV) | payer OTHER, SELFPAY | END 2023-07-20 07:00 | PROVIDERS: Admitting Provider Internal Medicine Pulmonary Disease; Emergency Provider Emergency Medicine Emergency Medical Services; Visit Provider Internal Medicine Cardiovascular Disease | DX: I37.1 Nonrheumatic pulmonary valve insufficiency (principal) | CPT/HCPCS: 93306 ==

== ENCOUNTER → 2023-07-16 12:00 | Outpatient (BNV) | payer OTHER, SELFPAY | PROVIDERS: Admitting Provider Internal Medicine Pulmonary Disease; Emergency Provider Emergency Medicine Emergency Medical Services; Visit Provider Internal Medicine | DX: I48.91 Unspecified atrial fibrillation (principal) | CPT/HCPCS: 99223; 99232 ==

== ENCOUNTER → 2023-07-16 12:00 | Outpatient (BNV) | payer OTHER, SELFPAY | PROVIDERS: Admitting Provider Internal Medicine Pulmonary Disease; Emergency Provider Emergency Medicine Emergency Medical Services; Visit Provider Family Medicine | DX: I48.91 Unspecified atrial fibrillation (principal); J96.00 Acute respiratory failure, unspecified whether with hypoxia or hypercapnia; J69.0 Pneumonitis due to inhalation of food and vomit; F20.9 Schizophrenia, unspecified; T17.928A Food in respiratory tract, part unspecified causing other injury, initial encounter; E87.0 Hyperosmolality and hypernatremia; G93.41 Metabolic encephalopathy | CPT/HCPCS: 99232; 99239; 99499 ==

== ENCOUNTER → 2023-07-16 12:00 | Outpatient (BNV) | payer OTHER, SELFPAY | PROVIDERS: Admitting Provider Internal Medicine Pulmonary Disease; Emergency Provider Emergency Medicine Emergency Medical Services; Visit Provider Psychiatry & Neurology Psychiatry | DX: F20.0 Paranoid schizophrenia (principal); R41.82 Altered mental status, unspecified; K22.0 Achalasia of cardia; T17.928A Food in respiratory tract, part unspecified causing other injury, initial encounter; W44.F3XA Food entering into or through a natural orifice, initial encounter; J96.00 Acute respiratory failure, unspecified whether with hypoxia or hypercapnia; J69.0 Pneumonitis due to inhalation of food and vomit | CPT/HCPCS: 99222 ==

== ENCOUNTER → 2023-07-16 12:00 | Outpatient (BNV) | payer OTHER, SELFPAY | PROVIDERS: Admitting Provider Internal Medicine Pulmonary Disease; Emergency Provider Emergency Medicine Emergency Medical Services; Visit Provider Internal Medicine Pulmonary Disease | DX: T17.928A Food in respiratory tract, part unspecified causing other injury, initial encounter (principal); W44.F3XA Food entering into or through a natural orifice, initial encounter; K22.0 Achalasia of cardia; F20.9 Schizophrenia, unspecified | CPT/HCPCS: 36556; 99233; 99291 ==

== ENCOUNTER 2023-07-21 17:23 | Inpatient (IN) | payer OTHER, SELFPAY ==
[2023-07-21 18:00] VITALS: BP 148/101; PULSE 88; RESP 18; TEMP 36.4; O2SAT 96
[2023-07-21 18:10] VITALS: BMI 19.5
--- NOTE | 2023-07-21 19:37 | PC.ADMIT ---
Nursing admission note: 63 year old male Referred by CARE team for admission. DX: Schizophrenia, unspecified. Admitted on section 12b. Transferred from medical floor after choking episode at [facility]. Patient had become unresponsive was intubated for aspiration and transferred to ICU 07/16/23. Patient extubated 07/17/23. Patient medically cleared 07/20/23. Patient initially admitted to [facility] for psychotic decompensation. Patient calm and cooperative during admission assessment. A+O x3, poor insight into admission. Reports he does not know why he was admitted to the hospital. Denies depression, sadness or anxiety. Denies SI/HI plan or intent. Denies perceptual disturbances, no overt psychosis or expressed delusions. Per crisis evaluation patient has been medication adherent although suspect of cheeking medications. Patient had been increasingly isolative, expressing paranoid delusions about God , believed a staff member was the creator of everything . In addition patient was writing numbers, symbols and letters all over the estrada. Had been urinating in containers and stealing raw meat from the kitchen. Patient lives in [facility] in [place], states he does not want to return there I hate it there . Endorses poor appetite stating 20 lb weight loss in 1 month The animals, birds and ants get fed better than we do . Patient denies sleep disturbances. Endorses poor appetite stating 20 lb weight loss in 1 month. Denies drug or alcohol use. Non smoker. Reports previously vaccinated this season. Patient oriented to unit, placed on unit safety checks. See nursing assessment, crisis evaluation for further details.
[2023-07-21 19:45] VITALS: BP 159/79; PULSE 80; RESP 14; TEMP 36.2; O2SAT 98
[2023-07-21] MEDS: cloZAPine 100 MG TABLET 200 MG PO (22:00)
[2023-07-21] MEDS: Amoxicillin/Potassium Clav 875 MG TABLET PO (22:08)
[2023-07-21] MEDS: timoloL maleate 0.5 % Oph Sol 5 ML DRBTL 1 DROP EYE-BOTH (22:08)
[2023-07-21] MEDS: Sennosides 8.6 MG TABLET 17.2 MG PO (22:09)
[2023-07-21] MEDS: Docusate Sodium 100 MG CAPSULE PO (22:09)
[2023-07-21] MEDS: Glycopyrrolate 1 MG TABLET PO (22:09)
[2023-07-21] MEDS: Divalproex Sodium 500 MG TABLET.DR 1000 MG PO (22:12)
[2023-07-22 07:47] VITALS: BP 114/65; PULSE 80; RESP 18; TEMP 36.5; O2SAT 95
[2023-07-22] MEDS: Aspirin Enteric Coated 81 MG TABLET.DR PO (09:18)
[2023-07-22] MEDS: Docusate Sodium 100 MG CAPSULE PO ×2 (09:18→22:10)
[2023-07-22] MEDS: Cyanocobalamin (Vitamin B-12) 1,000 MCG TABLET 1000 MCG PO (09:18)
[2023-07-22] MEDS: Famotidine 20 MG TABLET PO (09:18)
[2023-07-22] MEDS: Cholecalciferol (Vitamin D3) 25 MCG TABLET 50 MCG PO (09:18)
[2023-07-22] MEDS: Propranolol HCL LA 60 MG CAP.SA.24H PO (09:18)
[2023-07-22] MEDS: Lidocaine 4 % Patch ADH..PATCH 1 PATCH TRANSDERMA (09:19)
[2023-07-22] MEDS: Atorvastatin Calcium 10 MG TABLET PO (09:19)
[2023-07-22] MEDS: Fludrocortisone Acetate 0.1 MG TABLET PO (09:19)
[2023-07-22] MEDS: timoloL maleate 0.5 % Oph Sol 5 ML DRBTL 1 DROP EYE-BOTH ×2 (09:43→22:12)
[2023-07-22] MEDS: Amoxicillin/Potassium Clav 875 MG TABLET PO ×2 (11:27→22:09)
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
--- NOTE | 2023-07-22 16:11 | MHC.CLN ---
NUTRITION CONSULT FOR 20# WEIGHT LOSS X ONE MONTH. RECENT WEIGHT HX REVIEWED. COMPARING WEIGHT ON 07/16/23=63 KG TO CURRENT QHYKOQ66/12=59.9 KG, WEIGHT LOSS -5%, 9#. NOTE UNLIKELY WEIGHT CHANGE FROM 07/20=63.7 KG TO 07/21=59.879 KG. DIET=CHOPPED. INTAKE PRIOR TO ADULT PSYCH ADM WHILE ON MED-TELE UNIT WAS 75-100%. INTAKE DOES NOT SUPPORT WEIGHT LOSS. CONTINUE CHOPPED DIET. NO ADDITIONAL NUTRITION INTERVENTIONS AT THIS TIME DUE TO USUALLY GOOD INTAKE. IF INTAKE DECLINES, RECOMMEND ADD ENSURE BID. SUPPLEMENT PROVIDES 700 KCALS, 40 G PROTEIN.
[2023-07-22 20:04] VITALS: BP 132/73; PULSE 82; RESP 18; TEMP 36.4; O2SAT 98
[2023-07-22] MEDS: cloZAPine 100 MG TABLET 200 MG PO (22:09)
[2023-07-22] MEDS: Sennosides 8.6 MG TABLET 17.2 MG PO (22:10)
[2023-07-22] MEDS: Glycopyrrolate 1 MG TABLET PO (22:10)
[2023-07-22] MEDS: Divalproex Sodium 500 MG TABLET.DR 1000 MG PO (22:10)
[2023-07-23 07:00] VITALS: BMI 19.5
[2023-07-23 07:50] VITALS: BP 111/59; PULSE 75; TEMP 36.8; O2SAT 96
[2023-07-23] MEDS: Propranolol HCL LA 60 MG CAP.SA.24H PO (09:32)
[2023-07-23] MEDS: Cholecalciferol (Vitamin D3) 25 MCG TABLET 50 MCG PO (09:32)
[2023-07-23] MEDS: Famotidine 20 MG TABLET PO (09:32)
[2023-07-23] MEDS: Fludrocortisone Acetate 0.1 MG TABLET PO (09:32)
[2023-07-23] MEDS: Atorvastatin Calcium 10 MG TABLET PO (09:33)
[2023-07-23] MEDS: Aspirin Enteric Coated 81 MG TABLET.DR PO (09:33)
[2023-07-23] MEDS: Docusate Sodium 100 MG CAPSULE PO ×2 (09:33→20:13)
[2023-07-23] MEDS: Cyanocobalamin (Vitamin B-12) 1,000 MCG TABLET 1000 MCG PO (09:33)
[2023-07-23] MEDS: Lidocaine 4 % Patch ADH..PATCH 1 PATCH TRANSDERMA (09:34)
[2023-07-23] MEDS: timoloL maleate 0.5 % Oph Sol 5 ML DRBTL 1 DROP EYE-BOTH ×2 (10:30→20:13)
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
[2023-07-23] MEDS: Divalproex Sodium 500 MG TABLET.DR 1000 MG PO (20:12)
[2023-07-23] MEDS: cloZAPine 100 MG TABLET 200 MG PO (20:13)
[2023-07-23] MEDS: Sennosides 8.6 MG TABLET 17.2 MG PO (20:13)
[2023-07-23] MEDS: Glycopyrrolate 1 MG TABLET PO (20:13)
[2023-07-24 07:40] VITALS: BP 118/57; PULSE 81; RESP 18; TEMP 36.6; O2SAT 96
[2023-07-24] MEDS: Lidocaine 4 % Patch ADH..PATCH 1 PATCH TRANSDERMA (09:00)
[2023-07-24] MEDS: Propranolol HCL LA 60 MG CAP.SA.24H PO (09:01)
[2023-07-24] MEDS: Cyanocobalamin (Vitamin B-12) 1,000 MCG TABLET 1000 MCG PO (09:01)
[2023-07-24] MEDS: Cholecalciferol (Vitamin D3) 25 MCG TABLET 50 MCG PO (09:01)
[2023-07-24] MEDS: Famotidine 20 MG TABLET PO (09:01)
[2023-07-24] MEDS: Fludrocortisone Acetate 0.1 MG TABLET PO (09:01)
[2023-07-24] MEDS: Aspirin Enteric Coated 81 MG TABLET.DR PO (09:01)
[2023-07-24] MEDS: Atorvastatin Calcium 10 MG TABLET PO (09:01)
[2023-07-24] MEDS: Docusate Sodium 100 MG CAPSULE PO (09:01)
== END 2023-07-24 11:05 | disposition home or self-care (01) | DRG 750 ==
PROVIDERS: Admitting Provider Psychiatry & Neurology Psychiatry; Visit Provider Psychiatry & Neurology Psychiatry
DX: F20.9 Schizophrenia, unspecified (principal); Z79.82 Long term (current) use of aspirin; Z79.899 Other long term (current) drug therapy

== ENCOUNTER → 2023-07-21 17:23 | Outpatient (BNV) | payer OTHER, SELFPAY | PROVIDERS: Admitting Provider Psychiatry & Neurology Psychiatry; Visit Provider Psychiatry & Neurology Psychiatry | DX: F20.9 Schizophrenia, unspecified (principal) | CPT/HCPCS: 90792; 99231; 99239 ==